=== PATIENT | female | born 1945 | race American Indian/Alaskan Native ===

== ENCOUNTER 2019-09-07 16:57 | Emergency (ER) | payer MEDICARE, OTHER ==
[2019-09-07 17:13] VITALS: BP 154/71; PULSE 95
[2019-09-07 18:04] LABS: ANION GAP 12.8 mEq/L (7-13); CHLORIDE,CL 102 mmol/L (98-107); SODIUM,NA 139 mmol/L (136-145)
--- NOTE | 2019-09-07 18:17 | EDM.PDOC ---
ED HPI GENERAL MEDICAL PROBLEM - General Chief Complaint: Respiratory Problem Stated Complaint: SOB Time Seen by Provider: 09/07/19 18:00 Source of Information: Reports: Patient History Limitations: Reports: No Limitations - History of Present Illness INITIAL COMMENTS - FREE TEXT/NARRATIVE: This 73 yo female patient reports to the ED with increased shortness of breath that came on acutely while she was at [facility]. The patient reports she has these episodes frequently (daily). The patient does not have any medications for anxiety. Onset: Today Duration: Resolved Prior to Arrival Location: Reports: Generalized Quality: Reports: Other Severity: Moderate Improves with: Reports: None Worsens with: Reports: None Context: Reports: Other Associated Symptoms: Reports: Shortness of Breath - Related Data Allergies Allergy/AdvReac Type Severity Reaction Status Date / Time aspirin Allergy Other Verified 09/07/19 17:17 pseudoephedrine Allergy Arrhythmias Verified 09/07/19 17:17 Home Meds: Home Meds Losartan [Cozaar] 100 mg PO DAILY 12/06/13 [History] Metoprolol Succinate 25 mg PO DAILY 12/06/13 [History] amLODIPine Besylate [Amlodipine Besylate] 10 mg PO DAILY 12/06/13 [History] Cyclobenzaprine [Flexeril] 1 tab PO ASDIRECTED PRN 08/15/15 [History] hydroCHLOROthiazide [Hydrochlorothiazide] 50 mg PO DAILY 09/07/19 [History] Past Medical History HEENT History: Reports: Allergic Rhinitis, Cataract Cardiovascular History: Reports: High Cholesterol, Hypertension Respiratory History: Reports: None Gastrointestinal History: Reports: GERD Genitourinary History: Reports: None 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 ED EXAM, GENERAL - Physical Exam Exam: See Below Exam Limited By: No Limitations General Appearance: Alert, WD/WN, No Apparent Distress Eye Exam: Bilateral Eye: EOMI, Normal Inspection, PERRL Ears: Normal External Exam, Normal Canal, Hearing Grossly Normal, Normal TMs Nose: Normal Inspection, Normal Mucosa, No Blood Throat/Mouth: Normal Inspection, Normal Lips, Normal Teeth, Normal Gums, Normal Oropharynx, Normal Voice, No Airway Compromise Head: Atraumatic, Normocephalic Neck: Normal Inspection, Supple, Non-Tender, Full Range of Motion Respiratory/Chest: No Respiratory Distress, No Accessory Muscle Use, Chest Non- Tender, Decreased Breath Sounds, Crackles (faint diffuse) Cardiovascular: Normal Peripheral Pulses, Regular Rate, Rhythm, No Edema, No Gallop, No JVD, No Murmur, No Rub GI/Abdominal: Normal Bowel Sounds, Soft, Non-Tender, No Organomegaly, No Distention, No Abnormal Bruit, No Mass (Female) Exam: Deferred Rectal (Female) Exam: Deferred Back Exam: Normal Inspection, Full Range of Motion, NT Extremities: Normal Inspection, Normal Range of Motion, Non-Tender, Normal Capillary Refill, No Pedal Edema Neurological: Alert, Oriented, CN II-XII Intact, Normal Cognition, Normal Gait, Normal Reflexes, No Motor/Sensory Deficits Psychiatric: Normal Affect, Normal Mood Skin Exam: Warm, Dry, Intact, Normal Color, No Rash Lymphatic: No Adenopathy Course - Vital Signs Last Recorded V/S: Last Vital Signs Temp 36.4 C 09/07/19 17:11 Pulse 95 09/07/19 17:11 Resp 12 09/07/19 17:11 BP 154/71 H 09/07/19 17:11 Pulse Ox 93 L 09/07/19 17:11 - Orders/Labs/Meds Orders: Active Orders 24 hr Category Date Time Status EKG Documentation Completion [RC] STAT Care 09/07/19 17:26 Ordered Labs: Laboratory Tests 09/07/19 09/07/19 Range/Units 17:34 17:34 WBC 9.3 (5.0-10.0) 10^3/uL RBC 4.88 (4.2-5.4) 10^6/uL Hgb 15.1 (12.0-16.0) g/dL Hct 44.7 (37.0-47.0) % MCV 91.6 (80-100) fL MCH 30.9 (27.0-34.0) pg MCHC 33.8 (33.0-35.0) g/dL Plt Count 287 (150-450) 10^3/uL Neut % (Auto) 60.0 (42.2-75.2) % Lymph % (Auto) 26.2 (20.5-50.1) % [place] % (Auto) 9.7 H (2-8) % Eos % (Auto) 3.9 H (1.0-3.0) % Baso % (Auto) 0.2 (0.0-1.0) % Sodium 139 (136-145) mmol/L Potassium 3.8 (3.5-5.1) mmol/L Chloride 102 (98-107) mmol/L Carbon Dioxide 28 (21-32) mmol/L Anion Gap 12.8 (7-13) mEq/L BUN 17 (7-18) mg/dL Creatinine 1.09 H (0.55-1.02) mg/dL Est Cr Clr Drug Dosing 40.74 mL/min Estimated GFR (MDRD) 49 BUN/Creatinine Ratio 15.6 (No establ ref range) Glucose 95 (74-99) mg/dL Calcium 9.1 (8.5-10.1) mg/dL Total Bilirubin 0.3 (0.2-1.0) mg/dL AST 17 (15-37) U/L ALT 24 (14-59) U/L Alkaline Phosphatase 84 (46-116) U/L Troponin I < 0.017 (0.000-0.056) ng/mL Total Protein 7.6 (6.4-8.2) g/dL Albumin 4.1 (3.4-5.0) g/dL Globulin 3.5 Albumin/Globulin Ratio 1.2 Departure - Departure Time of Disposition: 18:13 Disposition: Home, Self-Care 01 Condition: Fair Clinical Impression: Panic attack, Anxiety - Discharge Information *PRESCRIPTION DRUG MONITORING PROGRAM REVIEWED*: Not Applicable *COPY OF PRESCRIPTION DRUG MONITORING REPORT IN PATIENT HANY: Not Applicable Instructions: Living With Anxiety Care Plan Goals: The patient was advised of the examination, lab and EKG results during the visit. The patient was encouraged to continue to use her relaxation techniques. The patient should visit with her primary care facility about these episodes. If the patient has any additional symptoms or concerns, the patient should either return to the emergency department or visit her primary care facility. Sepsis Event Note (ED) - Evaluation Sepsis Screening Result: No Definite Risk - Focused Exam Vital Signs: Vital Signs Temp Pulse Resp BP Pulse Ox 09/07/19 17:11 36.4 C 95 12 154/71 H 93 L - My Orders Last 24 Hours: My Active Orders 09/07/19 17:26 EKG Documentation Completion [RC] STAT - Assessment/Plan Last 24 Hours: My Active Orders 09/07/19 17:26 EKG Documentation Completion [RC] STAT
== END 2019-09-07 18:24 | disposition home or self-care (01) ==
LOC: DL.ED 16:57
DX: F41.0 Panic disorder [episodic paroxysmal anxiety] (principal); I10 Essential (primary) hypertension; Z88.8 Allergy status to other drugs, medicaments and biological substances; Z79.899 Other long term (current) drug therapy
CPT/HCPCS: 36415; 80053; 84484; 85025; 93005; 99285-25

== ENCOUNTER 2019-09-13 04:27 | Emergency (ER) | payer MEDICARE, OTHER ==
[2019-09-13] MEDS ORDERED: LORazepam 1 MG Tab PO ONE (04:28)
[2019-09-13 04:42] VITALS: BP 168/63; PULSE 97
[2019-09-13] MEDS ORDERED: LORazepam 1 MG Tab ONE (04:43)
--- NOTE | 2019-09-13 04:46 | EDM.PDOCBH ---
ED HPI GENERAL MEDICAL PROBLEM - General Chief Complaint: Behavioral/Psych Stated Complaint: ANXIETY ATTACK Time Seen by Provider: 09/13/19 04:42 Source of Information: Reports: Patient History Limitations: Reports: No Limitations - History of Present Illness INITIAL COMMENTS - FREE TEXT/NARRATIVE: states felt the same as last time was here and had lots of tests done but this t venecia doesn't want all that. drove herself here and actually felt better while in the parking lot. states been worried alot with being sick and has agent orange problems. - Related Data Allergies Allergy/AdvReac Type Severity Reaction Status Date / Time aspirin Allergy Other Verified 09/13/19 04:37 pseudoephedrine Allergy Arrhythmias Verified 09/13/19 04:37 Home Meds: Home Meds Losartan [Cozaar] 100 mg PO DAILY 12/06/13 [History] Metoprolol Succinate 25 mg PO DAILY 12/06/13 [History] amLODIPine Besylate [Amlodipine Besylate] 10 mg PO DAILY 12/06/13 [History] Cyclobenzaprine [Flexeril] 1 tab PO ASDIRECTED PRN 08/15/15 [History] Albuterol [Proair HFA] 2 puff INH Q6H PRN 09/07/19 [History] hydroCHLOROthiazide [Hydrochlorothiazide] 50 mg PO DAILY 09/07/19 [History] Past Medical History HEENT History: Reports: Allergic Rhinitis, Cataract Cardiovascular History: Reports: High Cholesterol, Hypertension Respiratory History: Reports: None Other Respiratory History: uses an inhaler when needed Gastrointestinal History: Reports: GERD Genitourinary History: Reports: None 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 ED EXAM, BEHAVIORAL HEALTH - Physical Exam Exam: See Below Exam Limited By: No Limitations General Appearance: Alert, WD/WN, Anxious, Mild Distress, Other (tearful) Eye Exam: Bilateral Eye: PERRL (ess ER @ 4mm) Ears: Hearing Grossly Normal Throat/Mouth: Normal Voice, No Airway Compromise Head: Atraumatic Neck: Non-Tender, Full Range of Motion Respiratory/Chest: No Respiratory Distress, Lungs Clear, Normal Breath Sounds Cardiovascular: Regular Rate, Rhythm GI/Abdominal: Soft, Non-Tender Neurological: Alert, Normal Cognition, Normal Gait, No Motor/Sensory Deficits, Oriented x 3 Psychiatric: Alert, Normal Cognition, Oriented, Tearful, Other (anxious) Skin Exam: Warm, Dry, Normal color Departure - Departure Time of Disposition: 04:45 Disposition: Home, Self-Care 01 Condition: Good Clinical Impression: Panic attack - Discharge Information Forms: ED Department Discharge Additional Instructions: 1) rest 2) follow up with appointment Friday rx leo; ativan 1mg x 1
== END 2019-09-13 04:48 | disposition home or self-care (01) ==
LOC: DL.ED 04:27
DX: F41.0 Panic disorder [episodic paroxysmal anxiety] (principal); I10 Essential (primary) hypertension; Z88.6 Allergy status to analgesic agent; Z88.8 Allergy status to other drugs, medicaments and biological substances; Z79.899 Other long term (current) drug therapy
CPT/HCPCS: 99283; A9270

== ENCOUNTER 2019-09-18 12:54 | Emergency (ER) | payer MEDICARE, OTHER ==
--- NOTE | 2019-09-18 13:45 | EDM.PDOC ---
ED HPI GENERAL MEDICAL PROBLEM - General Chief Complaint: Respiratory Problem Stated Complaint: HARD TO BREATHE Time Seen by Provider: 09/18/19 13:00 Source of Information: Reports: Patient, RN, RN Notes Reviewed History Limitations: Reports: No Limitations - History of Present Illness INITIAL COMMENTS - FREE TEXT/NARRATIVE: Patient presents to ER with complaint of cough and shortness of breath. Patient states she was diagnosed on 09/15/2019 with pneumonia. Patient was prescribed an albuterol inhaler, cough syrup, as well as a Z-Tobi. Patient states she feels her symptoms are not improving. Patient denies fever chills, nausea, vomiting, diarrhea, exposure to COVID. Patient states she was tested for COVID 2 days ago and this was negative. Patient denies chest pains. Onset: Gradual Duration: Constant - Related Data Allergies Allergy/AdvReac Type Severity Reaction Status Date / Time aspirin Allergy Other Verified 09/18/19 13:09 pseudoephedrine Allergy Arrhythmias Verified 09/18/19 13:09 Home Meds: Home Meds Losartan [Cozaar] 100 mg PO DAILY 12/06/13 [History] Metoprolol Succinate 25 mg PO DAILY 12/06/13 [History] amLODIPine Besylate [Amlodipine Besylate] 10 mg PO DAILY 12/06/13 [History] Cyclobenzaprine [Flexeril] 1 tab PO ASDIRECTED PRN 08/15/15 [History] Albuterol [Proair HFA] 2 puff INH Q6H PRN 09/07/19 [History] hydroCHLOROthiazide [Hydrochlorothiazide] 50 mg PO DAILY 09/07/19 [History] Azithromycin 250 mg PO DAILY 09/18/19 [History] guaiFENesin/Dextromethorphan [Guaifenesin-Dm 100-10 mg/5 ml] 10 ml PO Q4H 09/18/19 [History] Past Medical History HEENT History: Reports: Allergic Rhinitis, Cataract Cardiovascular History: Reports: High Cholesterol, Hypertension Respiratory History: Reports: None Other Respiratory History: uses an inhaler when needed Gastrointestinal History: Reports: GERD Genitourinary History: Reports: None 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: Musculoskeletal History: Reports: Osteoarthritis Neurological History: Reports: None Psychiatric History: Reports: None Endocrine/Metabolic History: Reports: None Hematologic History: Reports: None Immunologic History: Reports: None Oncologic (Cancer) History: Reports: None, Breast Dermatologic History: Reports: None - Infectious Disease History Infectious Disease History: Reports: Chicken Pox, Measles, Mumps - Past Surgical History Head Surgeries/Procedures: Reports: None HEENT Surgical History: Reports: Cataract Surgery Social & Family History - Family History Family Medical History: Noncontributory - Tobacco Use Smoking Status *Q: Current Every Day Smoker Years of Tobacco use: 40 Packs/Tins Daily: 1 - Caffeine Use Caffeine Use: Reports: Coffee - Recreational Drug Use Recreational Drug Use: No ED ROS GENERAL - Review of Systems Review Of Systems: Comprehensive ROS is negative, except as noted in HPI. ED EXAM, GENERAL - Physical Exam Exam: See Below Exam Limited By: No Limitations General Appearance: Alert, WD/WN, No Apparent Distress, Anxious Eye Exam: Bilateral Eye: EOMI, Normal Inspection Ears: Normal External Exam, Hearing Grossly Normal Nose: Normal Inspection Throat/Mouth: Normal Inspection, Normal Voice, No Airway Compromise Head: Atraumatic, Normocephalic Neck: Normal Inspection, Supple, Non-Tender, Full Range of Motion Respiratory/Chest: No Respiratory Distress, No Accessory Muscle Use, Chest Non- Tender, Decreased Breath Sounds Cardiovascular: Normal Peripheral Pulses, Regular Rate, Rhythm, No Edema, No Gallop, No JVD, No Murmur, No Rub Peripheral Pulses: 2+: Radial (L), Radial (R) GI/Abdominal: Normal Bowel Sounds, Soft, Non-Tender (Female) Exam: Deferred Rectal (Female) Exam: Deferred Back Exam: Normal Inspection, Full Range of Motion, NT Extremities: Normal Inspection, Normal Range of Motion, Non-Tender, Normal Capillary Refill, No Pedal Edema Neurological: Alert, Oriented, CN II-XII Intact, Normal Cognition, Normal Gait, Normal Reflexes, No Motor/Sensory Deficits Psychiatric: Normal Affect, Normal Mood, Anxious Skin Exam: Warm, Dry, Intact, Normal Color, No Rash Lymphatic: No Adenopathy Course - Vital Signs Last Recorded V/S: Last Vital Signs Temp 98.9 F 09/18/19 14:24 Pulse 79 09/18/19 14:24 Resp 20 09/18/19 14:24 BP 125/65 09/18/19 14:24 Pulse Ox 93 L 09/18/19 14:24 - Orders/Labs/Meds Labs: Laboratory Tests 09/18/19 09/18/19 Range/Units 13:30 13:30 WBC 9.6 (5.0-10.0) 10^3/uL RBC 4.98 (4.2-5.4) 10^6/uL Hgb 15.2 (12.0-16.0) g/dL Hct 45.4 (37.0-47.0) % MCV 91.2 (80-100) fL MCH 30.5 (27.0-34.0) pg MCHC 33.5 (33.0-35.0) g/dL Plt Count 302 (150-450) 10^3/uL Neut % (Auto) 63.9 (42.2-75.2) % Lymph % (Auto) 19.1 L (20.5-50.1) % [place] % (Auto) 8.2 H (2-8) % Eos % (Auto) 8.5 H (1.0-3.0) % Baso % (Auto) 0.3 (0.0-1.0) % Sodium 138 (136-145) mmol/L Potassium 3.7 (3.5-5.1) mmol/L Chloride 101 (98-107) mmol/L Carbon Dioxide 27 (21-32) mmol/L Anion Gap 13.7 H (7-13) mEq/L BUN 20 H (7-18) mg/dL Creatinine 0.95 (0.55-1.02) mg/dL Est Cr Clr Drug Dosing 46.75 mL/min Estimated GFR (MDRD) 58 BUN/Creatinine Ratio 21.1 (No establ ref range) Glucose 94 (74-99) mg/dL Calcium 8.8 (8.5-10.1) mg/dL Total Bilirubin 0.3 (0.2-1.0) mg/dL AST 13 L (15-37) U/L ALT 19 (14-59) U/L Alkaline Phosphatase 89 (46-116) U/L B-Natriuretic Peptide 25 (0-100) pg/ml Total Protein 7.4 (6.4-8.2) g/dL Albumin 3.8 (3.4-5.0) g/dL Globulin 3.6 Albumin/Globulin Ratio 1.1 - Radiology Interpretation Free Text/Narrative:: Chest x-ray: PROCEDURE INFORMATION: Exam: XR Chest, 2 Views Exam date and time: 09/18/2019 1:40 PM Age: 73 years old Clinical indication: Cough and shortness of breath; Additional info: Increased SOB and cough TECHNIQUE: Imaging protocol: XR of the chest Views: 2 views. COMPARISON: No relevant prior studies available. FINDINGS: Lungs: Lungs are hyperinflated consistent with COPD. Pleural space: Unremarkable. No pleural effusion. No pneumothorax. Heart/Mediastinum: Unremarkable. No cardiomegaly. Bones/joints: Remote compression fracture in the midthoracic spine. IMPRESSION: No acute findings. Thank you for allowing us to participate in the care of your patient. Dictated and Authenticated by: Gentry Harris MD 09/18/2019 2:05 PM Central Time ([place] & [place]) See rad report Departure - Departure Time of Disposition: 14:26 Disposition: Home, Self-Care 01 Condition: Fair Clinical Impression: Pneumonia Qualifiers: Pneumonia type: due to unspecified organism Laterality: right Lung location: lower lobe of lung Qualified Code(s): J18.9 - Pneumonia, unspecified organism - Discharge Information *PRESCRIPTION DRUG MONITORING PROGRAM REVIEWED*: No *COPY OF PRESCRIPTION DRUG MONITORING REPORT IN PATIENT HANY: No Instructions: Acute Bronchitis, Adult, [id number], Upper Respiratory Infection, Adult, [id number], Community-Acquired Pneumonia, Adult, [id number] Forms: ED Department Discharge Additional Instructions: Rx: Prednisone Finish azithromycin Use albuterol inhaler as directed Continue using cough medication Rx: Dino Oneill Follow-up with your primary care provider in the clinic if no improvement Sepsis Event Note (ED) - Evaluation Sepsis Screening Result: No Definite Risk - Focused Exam Vital Signs: Vital Signs Temp Pulse Resp BP Pulse Ox 09/18/19 14:24 98.9 F 79 20 125/65 93 L 09/18/19 12:58 98.4 F 122 H 18 122/66 94 L
--- NOTE | 2019-09-18 14:05 | CR ---
PROCEDURE INFORMATION: Exam: XR Chest, 2 Views Exam date and time: 09/18/2019 1:40 PM Age: 73 years old Clinical indication: Cough and shortness of breath; Additional info: Increased SOB and cough TECHNIQUE: Imaging protocol: XR of the chest Views: 2 views. COMPARISON: No relevant prior studies available. FINDINGS: Lungs: Lungs are hyperinflated consistent with COPD. Pleural space: Unremarkable. No pleural effusion. No pneumothorax. Heart/Mediastinum: Unremarkable. No cardiomegaly. Bones/joints: Remote compression fracture in the midthoracic spine. IMPRESSION: No acute findings.
[2019-09-18 14:06] LABS: ANION GAP 13.7 mEq/L (7-13)
[2019-09-18 14:25] VITALS: BP 125/65; PULSE 79
== END 2019-09-18 14:36 | disposition home or self-care (01) ==
LOC: DL.ED 12:54
DX: J18.9 Pneumonia, unspecified organism (principal); I10 Essential (primary) hypertension; F17.210 Nicotine dependence, cigarettes, uncomplicated; Z88.6 Allergy status to analgesic agent; Z88.8 Allergy status to other drugs, medicaments and biological substances; Z79.899 Other long term (current) drug therapy; R06.02 Shortness of breath
CPT/HCPCS: 36415; 71046; 80053; 83880; 85025; 99283; 99283-25

== ENCOUNTER 2019-12-06 01:52 | Emergency (ER) | payer MEDICARE, OTHER ==
[2019-12-06] MEDS ORDERED: Levofloxacin 500 MG Tab PO ONE (01:53)
[2019-12-06] MEDS ORDERED: predniSONE 20 MG Tab PO ONE (01:53)
[2019-12-06 02:04] VITALS: BP 147/87; PULSE 106
--- NOTE | 2019-12-06 02:40 | EDM.PDOC ---
ED HPI GENERAL MEDICAL PROBLEM - General Chief Complaint: Respiratory Problem Stated Complaint: HAVE TROUBLE BREATHIN, SOB, COUGH Time Seen by Provider: 12/06/19 02:05 Source of Information: Reports: Patient History Limitations: Reports: No Limitations - History of Present Illness INITIAL COMMENTS - FREE TEXT/NARRATIVE: ED with c/o SOB and cough, non productive. Hx COPD diagnosed this summer, using inhaler at home not helping. No fever or chills. SOB with activity and when lying down. No chest pain or heart racing. COVID exposure. Grandson age 14 diagnosed positive on with sx present for one week prior to dx. Son also positive last week. No loss of taste or smell. No nausea or vomiting. Reports recent loss of son last week. - Related Data Allergies Allergy/AdvReac Type Severity Reaction Status Date / Time aspirin Allergy Other Verified 12/06/19 02:16 pseudoephedrine Allergy Arrhythmias Verified 12/06/19 02:16 Home Meds: Home Meds Losartan [Cozaar] 100 mg PO DAILY 12/06/13 [History] Metoprolol Succinate 25 mg PO DAILY 12/06/13 [History] amLODIPine Besylate [Amlodipine Besylate] 10 mg PO DAILY 12/06/13 [History] Cyclobenzaprine [Flexeril] 1 tab PO ASDIRECTED PRN 08/15/15 [History] Albuterol [Proair HFA] 2 puff INH Q6H PRN 09/07/19 [History] hydroCHLOROthiazide [Hydrochlorothiazide] 50 mg PO DAILY 09/07/19 [History] guaiFENesin/Dextromethorphan [Guaifenesin-Dm 100-10 mg/5 ml] 10 ml PO Q4H 09/18/19 [History] ClonazePAM [KlonoPIN] 0.5 mg PO TID PRN 12/06/19 [History] Past Medical History HEENT History: Reports: Allergic Rhinitis, Cataract Cardiovascular History: Reports: High Cholesterol, Hypertension Respiratory History: Reports: COPD Other Respiratory History: uses an inhaler when needed Gastrointestinal History: Reports: GERD Genitourinary History: Reports: None CLINIC LEAD History: Reports: Musculoskeletal History: Reports: Osteoarthritis Neurological History: Reports: None Psychiatric History: Reports: Anxiety Endocrine/Metabolic History: Reports: None Hematologic History: Reports: None Immunologic History: Reports: None Oncologic (Cancer) History: Reports: Breast Dermatologic History: Reports: None - Infectious Disease History Infectious Disease History: Reports: Chicken Pox, Measles, Mumps - Past Surgical History Head Surgeries/Procedures: Reports: None HEENT Surgical History: Reports: Cataract Surgery GI Surgical History: Reports: Cholecystectomy Oncologic Surgical History: Reports: Mastectomy Social & Family History - Family History Family Medical History: Noncontributory - Tobacco Use Smoking Status *Q: Current Every Day Smoker Years of Tobacco use: 50 Packs/Tins Daily: 1.5 Used Tobacco, but Quit: No - Caffeine Use Caffeine Use: Reports: Coffee - Recreational Drug Use Recreational Drug Use: No ED ROS GENERAL - Review of Systems Review Of Systems: Comprehensive ROS is negative, except as noted in HPI. ED EXAM, GENERAL - Physical Exam Exam: See Below Exam Limited By: No Limitations General Appearance: Alert, Mild Distress Eye Exam: Bilateral Eye: EOMI Ears: Normal External Exam, Normal TMs Nose: Normal Inspection Throat/Mouth: Normal Inspection, Normal Oropharynx Head: Atraumatic, Normocephalic Neck: Normal Inspection Respiratory/Chest: No Respiratory Distress, Decreased Breath Sounds, Wheezing, Other (left mastectomy ) Cardiovascular: Normal Peripheral Pulses, Regular Rate, Rhythm, No Edema GI/Abdominal: Normal Bowel Sounds, Soft Back Exam: Normal Inspection Extremities: Normal Inspection Neurological: Alert, Oriented Skin Exam: Warm, Dry, Intact, Normal Color Course - Vital Signs Last Recorded V/S: Last Vital Signs Temp 96.9 F 12/06/19 02:02 Pulse 106 H 12/06/19 02:02 Resp 28 H 12/06/19 02:02 BP 147/87 H 12/06/19 02:02 Pulse Ox 96 12/06/19 02:02 - Orders/Labs/Meds Orders: Active Orders 24 hr Category Date Time Status EKG Documentation Completion [RC] STAT Care 12/06/19 01:54 Active RT Post Treatment Assessment [RC] Click to Edit Care 12/06/19 03:20 Active RT Pre-Treatment Assessment [RC] Click to Edit Care 12/06/19 03:20 Active Sodium Chloride 0.9% [Normal Saline] 1,000 ml Med 12/06/19 02:49 Active IV .BOLUS Isolation [COMM] Routine Oth 12/06/19 01:55 Active Medication Orders Sodium Chloride (Normal Saline) 1,000 mls @ 500 mls/hr IV .BOLUS ONE Stop: 12/06/19 04:48 Last Admin: 12/06/19 03:23 Dose: 500 mls/hr Documented by: ALISON Labs: Laboratory Tests 12/06/19 12/06/19 12/06/19 Range/Units 02:11 02:11 02:11 WBC 7.2 (5.0-10.0) 10^3/uL RBC 4.47 (4.2-5.4) 10^6/uL Hgb 13.7 D (12.0-16.0) g/dL Hct 41.9 (37.0-47.0) % MCV 93.7 (80-100) fL MCH 30.6 (27.0-34.0) pg MCHC 32.7 L (33.0-35.0) g/dL Plt Count 239 (150-450) 10^3/uL Neut % (Auto) 59.9 (42.2-75.2) % Lymph % (Auto) 23.8 (20.5-50.1) % [place] % (Auto) 7.3 (2-8) % Eos % (Auto) 8.4 H (1.0-3.0) % Baso % (Auto) 0.6 (0.0-1.0) % D-Dimer, Quantitative 1020 H (0-400) ng/mL Sodium 143 (136-145) mmol/L Potassium 4.0 (3.5-5.1) mmol/L Chloride 106 (98-107) mmol/L Carbon Dioxide 28 (21-32) mmol/L Anion Gap 13.0 (7-13) mEq/L BUN 15 (7-18) mg/dL Creatinine 0.94 (0.55-1.02) mg/dL Est Cr Clr Drug Dosing 46.53 mL/min Estimated GFR (MDRD) 58 BUN/Creatinine Ratio 16.0 (No establ ref range) Glucose 103 H (74-99) mg/dL Calcium 8.8 (8.5-10.1) mg/dL Magnesium 1.9 (1.8-2.4) mg/dL Ferritin (8-252) mg/mL Total Bilirubin 0.3 (0.2-1.0) mg/dL AST 14 L (15-37) U/L ALT 21 (14-59) U/L Alkaline Phosphatase 74 (46-116) U/L Troponin I < 0.017 (0.000-0.056) ng/mL C-Reactive Protein 0.6 (0.0-0.9) mg/dL B-Natriuretic Peptide 51 (0-100) pg/ml Total Protein 6.9 (6.4-8.2) g/dL Albumin 3.8 (3.4-5.0) g/dL Globulin 3.1 Albumin/Globulin Ratio 1.2 Urine Color (YELLOW) Urine Appearance (CLEAR) Urine pH (5.0-9.0) Ur Specific [place] (1.005-1.030) Urine Protein (NEGATIVE) Urine Glucose (UA) (NEGATIVE) Urine Ketones (NEGATIVE) Urine Occult Blood (NEGATIVE) Urine Nitrite (NEGATIVE) Urine Bilirubin (NEGATIVE) Urine Urobilinogen (0.2-1.0) mg/dL Ur Leukocyte Esterase (NEGATIVE) SARS CoV-2 RNA Rapid RENAE (NEGATIVE) 12/06/19 12/06/19 12/06/19 Range/Units 02:11 02:12 03:20 WBC (5.0-10.0) 10^3/uL RBC (4.2-5.4) 10^6/uL Hgb (12.0-16.0) g/dL Hct (37.0-47.0) % MCV (80-100) fL MCH (27.0-34.0) pg MCHC (33.0-35.0) g/dL Plt Count (150-450) 10^3/uL Neut % (Auto) (42.2-75.2) % Lymph % (Auto) (20.5-50.1) % [place] % (Auto) (2-8) % Eos % (Auto) (1.0-3.0) % Baso % (Auto) (0.0-1.0) % D-Dimer, Quantitative (0-400) ng/mL Sodium (136-145) mmol/L Potassium (3.5-5.1) mmol/L Chloride (98-107) mmol/L Carbon Dioxide (21-32) mmol/L Anion Gap (7-13) mEq/L BUN (7-18) mg/dL Creatinine (0.55-1.02) mg/dL Est Cr Clr Drug Dosing mL/min Estimated GFR (MDRD) BUN/Creatinine Ratio (No establ ref range) Glucose (74-99) mg/dL Calcium (8.5-10.1) mg/dL Magnesium (1.8-2.4) mg/dL Ferritin 55 (8-252) mg/mL Total Bilirubin (0.2-1.0) mg/dL AST (15-37) U/L ALT (14-59) U/L Alkaline Phosphatase (46-116) U/L Troponin I (0.000-0.056) ng/mL C-Reactive Protein (0.0-0.9) mg/dL B-Natriuretic Peptide (0-100) pg/ml Total Protein (6.4-8.2) g/dL Albumin (3.4-5.0) g/dL Globulin Albumin/Globulin Ratio Urine Color Yellow (YELLOW) Urine Appearance Clear (CLEAR) Urine pH 5.5 (5.0-9.0) Ur Specific [place] 1.015 (1.005-1.030) Urine Protein Negative (NEGATIVE) Urine Glucose (UA) Negative (NEGATIVE) Urine Ketones Negative (NEGATIVE) Urine Occult Blood Negative (NEGATIVE) Urine Nitrite Negative (NEGATIVE) Urine Bilirubin Negative (NEGATIVE) Urine Urobilinogen 0.2 (0.2-1.0) mg/dL Ur Leukocyte Esterase Negative (NEGATIVE) SARS CoV-2 RNA Rapid RENAE Negative (NEGATIVE) Meds: Medications Generic Name Dose Route Start Last Admin Trade Name Freq PRN Reason Stop Dose Admin Sodium Chloride 1,000 mls @ 500 mls/hr 12/06/19 02:49 12/06/19 03:23 Normal Saline IV 12/06/19 04:48 500 mls/hr .BOLUS ONE Administration Discontinued Medications Generic Name Dose Route Start Last Admin Trade Name Freq PRN Reason Stop Dose Admin Albuterol 6.7 gm 12/06/19 03:20 12/06/19 03:24 Proventil Hfa INH 12/06/19 03:21 2 spray ONETIME ONE Administration Iopamidol 100 ml 12/06/19 02:49 12/06/19 02:58 Isovue-370 (76%) IVPUSH 12/06/19 02:50 100 ml ONETIME ONE Administration Levofloxacin Confirm 12/06/19 04:21 Levaquin Administered 12/06/19 04:22 Dose 500 mg .ROUTE .STK-MED ONE Methylprednisolone Sodium Succinate 125 mg 12/06/19 02:51 12/06/19 02:56 Solu-Medrol IVPUSH 12/06/19 02:52 125 mg ONETIME ONE Administration Prednisone Confirm 12/06/19 04:21 Prednisone Administered 12/06/19 04:22 Dose 40 mg .ROUTE .STK-MED ONE Departure - Departure Time of Disposition: 04:08 Disposition: Home, Self-Care 01 Condition: Good Clinical Impression: COPD exacerbation - Discharge Information *PRESCRIPTION DRUG MONITORING PROGRAM REVIEWED*: No *COPY OF PRESCRIPTION DRUG MONITORING REPORT IN PATIENT HANY: No Instructions: Chronic Obstructive Pulmonary Disease Exacerbation, [id number], Upper Respiratory Infection, Adult, [id number] Forms: ED Department Discharge Additional Instructions: clinic recheck this week urgent follow up if symptoms worsen prednisone taper levaquin 500mg daily for one week increase fluids today to flush IV contrast albuterol inhaler 2 puffs every 4 hours as needed Sepsis Event Note (ED) - Evaluation Sepsis Screening Result: No Definite Risk - Focused Exam Vital Signs: Vital Signs Temp Pulse Resp BP Pulse Ox 12/06/19 02:02 96.9 F 106 H 28 H 147/87 H 96 - My Orders Last 24 Hours: My Active Orders 12/06/19 01:54 EKG Documentation Completion [RC] STAT 12/06/19 01:55 Isolation [COMM] Routine 12/06/19 02:49 Sodium Chloride 0.9% [Normal Saline] 1,000 ml IV .BOLUS 12/06/19 03:20 RT Post Treatment Assessment [RC] Click to Edit RT Pre-Treatment Assessment [RC] Click to Edit - Assessment/Plan Last 24 Hours: My Active Orders 12/06/19 01:54 EKG Documentation Completion [RC] STAT 12/06/19 01:55 Isolation [COMM] Routine 12/06/19 02:49 Sodium Chloride 0.9% [Normal Saline] 1,000 ml IV .BOLUS 12/06/19 03:20 RT Post Treatment Assessment [RC] Click to Edit RT Pre-Treatment Assessment [RC] Click to Edit
[2019-12-06 02:41] LABS: CHLORIDE,CL 106 mmol/L (98-107); SODIUM,NA 143 mmol/L (136-145)
[2019-12-06] MEDS ORDERED: Sodium Chloride 0.9% 1,000 ML IV ONE (02:49)
[2019-12-06] MEDS ORDERED: Iopamidol 755 Mg/ML 100 ML Bottle IVPUSH ONE (02:49)
[2019-12-06] MEDS ORDERED: methylPREDNISolone Sodium Succinate 125 MG/2 ML SDV IVPUSH ONE (02:51)
[2019-12-06] MEDS ORDERED: Albuterol 6.7 GM Inhaler INH ONE (03:20)
--- NOTE | 2019-12-06 04:04 | CT ---
PROCEDURE INFORMATION: Exam: CT Chest With Contrast Exam date and time: 12/06/2019 3:11 AM Age: 74 years old Clinical indication: Other: [id number]; Patient HX: Pe protocol; Additional info: SOB wheeze, copd HX TECHNIQUE: Imaging protocol: Computed tomography of the chest with intravenous contrast. Radiation optimization: All CT scans at this facility use at least one of these dose optimization techniques: automated exposure control; mA and/or kV adjustment per patient size (includes targeted exams where dose is matched to clinical indication); or iterative reconstruction. Contrast material: [id number]; Contrast volume: 86 ml; Contrast route: INTRAVENOUS (IV); COMPARISON: CT Chest w Cont 10/26/2019 1:31 PM; CXR 09/18/2019 FINDINGS: Thyroid: No concerning thyroid gland nodules. Lungs: Central airways are patent. Upper lung predominant centrilobular emphysema is present. There is a subtle region of ground-glass attenuation in the right upper lobe that measures 1.7 cm (series 5, image 37). Left upper lobe pulmonary nodule measures 4 mm (series 5, image 12). Pleural space: Unremarkable. No pneumothorax. No pleural effusion. Heart: Unremarkable. No cardiomegaly. No pericardial effusion. Pulmonary arteries: No pulmonary embolus. Aorta: The thoracic aorta is normal in caliber and without evidence of dissection. There is moderate calcified and noncalcified atherosclerosis, especially of the descending aorta. Lymph nodes: No axillary lymphadenopathy. Liver: A 10 mm hypoattenuating lesion in the left lobe of the liver is incompletely evaluated but likely represents a benign entity. Gallbladder and bile ducts: The gallbladder is surgically absent. Kidneys and ureters: A fluid attenuating lesion in the right kidney measures 1.8 cm is unchanged and has no concerning features; this is likely a benign cyst and requires no further follow-up. Bones/joints: Anterior wedge deformity of T7 is unchanged. Soft tissues: The patient is status post left mastectomy. IMPRESSION: 1. No pulmonary embolus. 2. Ground-glass nodule in the right upper lobe measures 1.7 cm and is not changed over this short interval (last exam, 11/14/2019). Consider chest CT in 6 months to confirm stability. This recommendation is derived from the 2017 Fleischner society criteria.
[2019-12-06] MEDS ORDERED: predniSONE 20 MG Tab ONE (04:21)
[2019-12-06] MEDS ORDERED: Levofloxacin 500 MG Tab ONE (04:21)
== END 2019-12-06 04:36 | disposition home or self-care (01) ==
LOC: DL.ED 01:52
DX: J44.1 Chronic obstructive pulmonary disease with (acute) exacerbation (principal); I10 Essential (primary) hypertension; F41.9 Anxiety disorder, unspecified; F17.210 Nicotine dependence, cigarettes, uncomplicated; Z88.8 Allergy status to other drugs, medicaments and biological substances; Z88.6 Allergy status to analgesic agent; Z79.899 Other long term (current) drug therapy; Z20.828 Contact with and (suspected) exposure to other viral communicable diseases
CPT/HCPCS: 36415; 71260; 80053; 81003; 82728; 83735; 83880; 84484; 85025; 85379; 86140; 87804; 93005; 96374; 99284; 99285; A9270; J2930; J7030; J7512; Q9967; U0002

== ENCOUNTER 2019-12-22 13:44 | Emergency (ER) | payer MEDICARE, OTHER ==
[2019-12-22 14:29] VITALS: BP 144/67
--- NOTE | 2019-12-22 14:45 | CR ---
EXAMINATION: Chest 2V SEX: Female AGE: 74 years CLINICAL HISTORY: 74-year-old female with chest pain. Interpretation: No acute new cardiopulmonary abnormality since 18 September 2019 exam. 1. Left mastectomy. 2. 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 3. Normal cardiac silhouette. No pulmonary vascular congestion, cephalization of flow, alveolar edema or dependent pleural effusion. Small hiatus hernia. 4. Peribronchial "cuffing" and generalized mild air trapping suggesting reactive airway disease. 5. No lobar pneumonic infiltrates, atelectasis/collapse or "groundglass" densities. 6. No lung mass or hilar lymphadenopathy. CONCLUSION: No new signs of heart failure, lung mass or lobar pneumonia.
[2019-12-22 15:04] LABS: ANION GAP 13.6 mEq/L (7-13); CHLORIDE,CL 102 mmol/L (98-107); SODIUM,NA 138 mmol/L (136-145)
[2019-12-22] MEDS ORDERED: Albuterol/Ipratropium 3.0-0.5 MG/3 ML Neb Soln NEB ONE (15:32)
--- NOTE | 2019-12-22 15:34 | EDM.PDOC ---
ED HPI GENERAL MEDICAL PROBLEM - General Chief Complaint: Respiratory Problem Stated Complaint: SOB Time Seen by Provider: 12/22/19 15:33 Source of Information: Reports: Patient, RN, RN Notes Reviewed History Limitations: Reports: No Limitations - History of Present Illness INITIAL COMMENTS - FREE TEXT/NARRATIVE: Patient presents to the ED via personal vehicle with complaints of shortness of breath. Per the patient, this acute episode began this morning upon awakening. She states she did take her Proair today, but did not feel much relief of her symptoms. She relates she feels she is unable to "...take a good deep breath." She denies chest pain, palpitations, vision changes, or loss of motor/sensory function. She does attest to dry cough with occasional sputum production. She states she smokes about one and one half packs of cigarettes per day. The patient states she was treated in this ED roughly two weeks prior with similar symptoms with a prednisone burst and levofloxacin. She states her shortness of breath has progressively worsened since she ran out of steroids. - Related Data Allergies Allergy/AdvReac Type Severity Reaction Status Date / Time aspirin Allergy Other Verified 12/22/19 14:04 pseudoephedrine Allergy Arrhythmias Verified 12/22/19 14:04 Home Meds: Home Meds Losartan [Cozaar] 100 mg PO DAILY 12/06/13 [History] Metoprolol Succinate 25 mg PO DAILY 12/06/13 [History] amLODIPine Besylate [Amlodipine Besylate] 10 mg PO DAILY 12/06/13 [History] Cyclobenzaprine [Flexeril] 1 tab PO ASDIRECTED PRN 08/15/15 [History] Albuterol [Proair HFA] 2 puff INH Q4HR PRN 09/07/19 [History] hydroCHLOROthiazide [Hydrochlorothiazide] 50 mg PO DAILY 09/07/19 [History] guaiFENesin/Dextromethorphan [Guaifenesin-Dm 100-10 mg/5 ml] 10 ml PO Q4H 09/18/19 [History] ClonazePAM [KlonoPIN] 0.5 mg PO TID PRN 12/06/19 [History] Past Medical History HEENT History: Reports: Allergic Rhinitis, Cataract Cardiovascular History: Reports: High Cholesterol, Hypertension Respiratory History: Reports: COPD Other Respiratory History: uses an inhaler when needed Gastrointestinal History: Reports: GERD Genitourinary History: Reports: None 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: Musculoskeletal History: Reports: Osteoarthritis Neurological History: Reports: None Psychiatric History: Reports: Anxiety Endocrine/Metabolic History: Reports: None Hematologic History: Reports: None Immunologic History: Reports: None Oncologic (Cancer) History: Reports: Breast Dermatologic History: Reports: None - Infectious Disease History Infectious Disease History: Reports: Chicken Pox, Measles, Mumps - Past Surgical History Head Surgeries/Procedures: Reports: None HEENT Surgical History: Reports: Cataract Surgery GI Surgical History: Reports: Cholecystectomy Oncologic Surgical History: Reports: Mastectomy Social & Family History - Family History Family Medical History: Noncontributory - Tobacco Use Tobacco Use Status *Q: Current Every Day Tobacco User Years of Tobacco use: 60 Packs/Tins Daily: 1.5 - Caffeine Use Caffeine Use: Reports: Coffee - Recreational Drug Use Recreational Drug Use: No ED ROS GENERAL - Review of Systems Review Of Systems: Comprehensive ROS is negative, except as noted in HPI. ED EXAM, GENERAL - Physical Exam Exam: See Below Exam Limited By: No Limitations General Appearance: Alert, WD/WN, Mild Distress Nose: Normal Inspection, Normal Mucosa, No Blood Throat/Mouth: Normal Inspection, Normal Voice, No Airway Compromise Head: Atraumatic, Normocephalic Neck: Normal Inspection, Supple, Non-Tender, Full Range of Motion Respiratory/Chest: Chest Non-Tender, Decreased Breath Sounds, Wheezing, Accessory Muscle Use Cardiovascular: Normal Peripheral Pulses, Regular Rate, Rhythm, No Edema, No Gallop, No JVD, No Murmur, No Rub Peripheral Pulses: 2+: Radial (L), Radial (R) Extremities: Normal Inspection, Normal Range of Motion, Non-Tender, No Pedal Edema, Normal Capillary Refill Neurological: Alert, Oriented, CN II-XII Intact Psychiatric: Anxious Skin Exam: Warm, Dry, Normal Color, No Rash Course - Vital Signs Last Recorded V/S: Last Vital Signs Temp 97.8 F 12/22/19 14:20 Pulse 84 12/22/19 15:37 Resp 26 H 12/22/19 14:20 BP 144/67 H 12/22/19 14:20 Pulse Ox 96 12/22/19 14:20 - Orders/Labs/Meds Orders: Active Orders 24 hr Category Date Time Status EKG Documentation Completion [RC] URGENT Care 12/22/19 14:27 Active RT Aerosol Therapy [RC] ASDIRECTED Care 12/22/19 15:32 Ordered Labs: Laboratory Tests 12/22/19 12/22/19 Range/Units 14:16 14:16 WBC 8.3 (5.0-10.0) 10^3/uL RBC 4.67 (4.2-5.4) 10^6/uL Hgb 14.5 (12.0-16.0) g/dL Hct 44.1 (37.0-47.0) % MCV 94.4 (80-100) fL MCH 31.0 (27.0-34.0) pg MCHC 32.9 L (33.0-35.0) g/dL Plt Count 243 (150-450) 10^3/uL Neut % (Auto) 71.9 (42.2-75.2) % Lymph % (Auto) 14.9 L (20.5-50.1) % [place] % (Auto) 7.6 (2-8) % Eos % (Auto) 5.1 H (1.0-3.0) % Baso % (Auto) 0.5 (0.0-1.0) % Sodium 138 (136-145) mmol/L Potassium 3.6 (3.5-5.1) mmol/L Chloride 102 (98-107) mmol/L Carbon Dioxide 26 (21-32) mmol/L Anion Gap 13.6 H (7-13) mEq/L BUN 23 H (7-18) mg/dL Creatinine 0.97 (0.55-1.02) mg/dL Est Cr Clr Drug Dosing 45.09 mL/min Estimated GFR (MDRD) 56 BUN/Creatinine Ratio 23.7 (No establ ref range) Glucose 140 H (74-99) mg/dL Calcium 8.9 (8.5-10.1) mg/dL Total Bilirubin 0.4 (0.2-1.0) mg/dL AST 13 L (15-37) U/L ALT 22 (14-59) U/L Alkaline Phosphatase 68 (46-116) U/L Troponin I < 0.017 (0.000-0.056) ng/mL Total Protein 7.2 (6.4-8.2) g/dL Albumin 3.6 (3.4-5.0) g/dL Globulin 3.6 Albumin/Globulin Ratio 1.0 Meds: Medications Discontinued Medications Generic Name Dose Route Start Last Admin Trade Name Anju PRN Reason Stop Dose Admin Albuterol/Ipratropium 3 ml 12/22/19 15:32 12/22/19 15:40 Duoneb 3.0-0.5 Mg/3 Ml NEB 12/22/19 15:33 3 ml ONETIME ONE Administration - Re-Assessments/Exams Free Text/Narrative Re-Assessment/Exam: 12/22/19 15:45 Patient given a DuoNeb Departure - Departure Time of Disposition: 15:56 Disposition: Home, Self-Care 01 Condition: Good Clinical Impression: COPD exacerbation - Discharge Information *PRESCRIPTION DRUG MONITORING PROGRAM REVIEWED*: Not Applicable *COPY OF PRESCRIPTION DRUG MONITORING REPORT IN PATIENT HANY: Not Applicable Instructions: Steps to Quit Smoking, [id number], Chronic Obstructive Pulmonary Disease, [id number] Forms: ED Department Discharge Additional Instructions: Rx: Prednisone Follow up with your primary care provider by the end of the week. 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 Sepsis Event Note (ED) - Evaluation Sepsis Screening Result: Possible Sepsis Risk - Focused Exam Vital Signs: Vital Signs Temp Pulse Resp BP Pulse Ox 12/22/19 15:37 84 12/22/19 14:20 97.8 F 116 H 26 H 144/67 H 96 - My Orders Last 24 Hours: My Active Orders 12/22/19 15:32 RT Aerosol Therapy [RC] ASDIRECTED - Assessment/Plan Last 24 Hours: My Active Orders 12/22/19 15:32 RT Aerosol Therapy [RC] ASDIRECTED
[2019-12-22 15:39] VITALS: PULSE 84
== END 2019-12-22 16:25 | disposition home or self-care (01) ==
LOC: DL.ED 13:44
DX: J44.1 Chronic obstructive pulmonary disease with (acute) exacerbation (principal); F17.210 Nicotine dependence, cigarettes, uncomplicated; I10 Essential (primary) hypertension; Z79.899 Other long term (current) drug therapy; Z88.6 Allergy status to analgesic agent
CPT/HCPCS: 36415; 71046; 80053; 84484; 85025; 93005; 94640; 99285-25; J7620-GY

== ENCOUNTER 2019-12-30 16:24 | Emergency (ER) | payer MEDICARE, OTHER ==
[2019-12-30] MEDS ORDERED: Albuterol 0.083% 2.5 MG/3 ML Neb Soln NEB ONE (17:06)
[2019-12-30 17:16] VITALS: PULSE 103
--- NOTE | 2019-12-30 17:31 | EDM.PDOC ---
ED HPI GENERAL MEDICAL PROBLEM - General Chief Complaint: Respiratory Problem Stated Complaint: hard time breathing Time Seen by Provider: 12/30/19 17:10 Source of Information: Reports: Patient, RN, RN Notes Reviewed History Limitations: Reports: No Limitations - History of Present Illness INITIAL COMMENTS - FREE TEXT/NARRATIVE: Patient presents to the ED via personal vehicle for complaints of shortness of breath and cough. Patient states she has COPD and her rescue albuterol nebulizers and inhalers are not providing her adequate relief of symptoms. She states she has not followed up with her primary care provider since she was last seen in this facility on 12/22/2019. The patient does state she has an appointment with her PCP on 01/08/2020. She attests to using her DuoNeb roughly six times per day and her Ventolin about four times a day. She denies fever, shaking chills, chest pain, palpitations, vision changes, or an increase in sputum production. She states she is still currently smoking, but has the medications to help her quit. - Related Data Allergies Allergy/AdvReac Type Severity Reaction Status Date / Time aspirin Allergy Other Verified 12/22/19 14:04 pseudoephedrine Allergy Arrhythmias Verified 12/22/19 14:04 Home Meds: Home Meds Losartan [Cozaar] 100 mg PO DAILY 12/06/13 [History] Metoprolol Succinate 25 mg PO DAILY 12/06/13 [History] amLODIPine Besylate [Amlodipine Besylate] 10 mg PO DAILY 12/06/13 [History] Cyclobenzaprine [Flexeril] 1 tab PO ASDIRECTED PRN 08/15/15 [History] Albuterol [Proair HFA] 2 puff INH Q4HR PRN 09/07/19 [History] hydroCHLOROthiazide [Hydrochlorothiazide] 50 mg PO DAILY 09/07/19 [History] guaiFENesin/Dextromethorphan [Guaifenesin-Dm 100-10 mg/5 ml] 10 ml PO Q4H 09/18/19 [History] ClonazePAM [KlonoPIN] 0.5 mg PO TID PRN 12/06/19 [History] Past Medical History HEENT History: Reports: Allergic Rhinitis, Cataract Cardiovascular History: Reports: High Cholesterol, Hypertension Respiratory History: Reports: COPD Other Respiratory History: uses an inhaler when needed Gastrointestinal History: Reports: GERD Genitourinary History: Reports: None 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: Musculoskeletal History: Reports: Osteoarthritis Neurological History: Reports: None Psychiatric History: Reports: Anxiety Endocrine/Metabolic History: Reports: None Hematologic History: Reports: None Immunologic History: Reports: None Oncologic (Cancer) History: Reports: Breast Dermatologic History: Reports: None - Infectious Disease History Infectious Disease History: Reports: Chicken Pox, Measles, Mumps - Past Surgical History Head Surgeries/Procedures: Reports: None HEENT Surgical History: Reports: Cataract Surgery GI Surgical History: Reports: Cholecystectomy Oncologic Surgical History: Reports: Mastectomy Social & Family History - Family History Family Medical History: Noncontributory - Caffeine Use Caffeine Use: Reports: Coffee ED ROS GENERAL - Review of Systems Review Of Systems: Comprehensive ROS is negative, except as noted in HPI. ED EXAM, GENERAL - Physical Exam Exam: See Below Exam Limited By: No Limitations General Appearance: Alert, WD/WN, Mild Distress Throat/Mouth: Normal Inspection, Normal Voice, No Airway Compromise Neck: Normal Inspection, Supple, Non-Tender, Full Range of Motion Respiratory/Chest: Chest Non-Tender, Wheezing, Accessory Muscle Use. No: Crackles, Rales, Rhonchi, Stridor Cardiovascular: No Edema, No Gallop, No JVD, No Murmur, No Rub, Tachycardia Peripheral Pulses: 2+: Radial (L), Radial (R), Dorsalis Pedis (L), Dorsalis Pedis (R) GI/Abdominal: Normal Bowel Sounds, Soft, Non-Tender, No Distention, No Mass Extremities: Normal Inspection, Normal Range of Motion Neurological: Alert, Oriented, CN II-XII Intact, Normal Cognition, Normal Gait, No Motor/Sensory Deficits Psychiatric: Normal Affect, Normal Mood Skin Exam: Warm, Dry, Intact, Normal Color, No Rash. No: Ecchymosis, Erythema, Mottled, Pallor, Petechiae #1 Interpretation EKG Date: 12/30/19 Time: 16:46 Rhythm: Other (Sinus Tach) Rate (Beats/Min): 110 [place]: Normal P-Wave: Present QRS: Normal ST-T: Normal QT: Normal Comparison: No Change (ST; No evidence of acute ischemia) Course - Vital Signs Last Recorded V/S: Last Vital Signs Temp 98.1 F 12/30/19 16:47 Pulse 103 H 12/30/19 17:06 Resp 16 12/30/19 16:47 BP 145/65 H 12/30/19 16:47 Pulse Ox 93 L 12/30/19 17:06 - Orders/Labs/Meds Orders: Active Orders 24 hr Category Date Time Status RT Aerosol Therapy [RC] ASDIRECTED Care 12/30/19 17:06 Active Meds: Medications Discontinued Medications Generic Name Dose Route Start Last Admin Trade Name Freq PRN Reason Stop Dose Admin Albuterol 2.5 mg 12/30/19 17:06 12/30/19 17:11 Proventil Neb Soln NEB 12/30/19 17:07 2.5 mg ONETIME ONE Administration Methylprednisolone Sodium Succinate 125 mg 12/30/19 18:02 12/30/19 18:22 Solu-Medrol IM 12/30/19 18:03 125 mg ONETIME ONE Administration - Re-Assessments/Exams Free Text/Narrative Re-Assessment/Exam: Patient states an improvement in her breathing following the nebulizer treatment and the steroid injection. Patient counseled on the use of pulmonary burst steroids for COPD, rescue methods for COPD, and the importance of a long-acting medication to better control her COPD. She verbalized understanding and agreement with the plan of care. Departure - Departure Time of Disposition: 18:26 Disposition: Home, Self-Care 01 Condition: Good Clinical Impression: COPD exacerbation - Discharge Information *PRESCRIPTION DRUG MONITORING PROGRAM REVIEWED*: Not Applicable *COPY OF PRESCRIPTION DRUG MONITORING REPORT IN PATIENT HANY: Not Applicable Referrals: Jose Roberto Sawant [Primary Care Provider] - Forms: ED Department Discharge Additional Instructions: Rx: Prednisone Keep appointment with primary care provider to set up appointment with Pulmonology. Refrain from smoking cigarettes. - My Orders Last 24 Hours: My Active Orders 12/30/19 17:06 RT Aerosol Therapy [RC] ASDIRECTED - Assessment/Plan Last 24 Hours: My Active Orders 12/30/19 17:06 RT Aerosol Therapy [RC] ASDIRECTED
[2019-12-30 17:51] VITALS: BP 145/65
[2019-12-30] MEDS ORDERED: methylPREDNISolone Sodium Succinate 125 MG/2 ML SDV IM ONE (18:02)
== END 2019-12-30 18:32 | disposition home or self-care (01) ==
LOC: DL.ED 16:24
DX: J44.1 Chronic obstructive pulmonary disease with (acute) exacerbation (principal); I10 Essential (primary) hypertension; Z88.6 Allergy status to analgesic agent; Z88.8 Allergy status to other drugs, medicaments and biological substances; Z79.899 Other long term (current) drug therapy
CPT/HCPCS: 96372; 99284; J2930; J7613-GY

== ENCOUNTER 2020-04-24 03:02 | Emergency (ER) | payer MEDICARE, OTHER ==
[2020-04-24] MEDS ORDERED: methylPREDNISolone Sodium Succinate 125 MG/2 ML SDV IVPUSH ONE (03:08)
[2020-04-24] MEDS ORDERED: Albuterol/Ipratropium 3.0-0.5 MG/3 ML Neb Soln NEB ONE (03:08)
--- NOTE | 2020-04-24 03:33 | EDM.PDOC ---
ED HPI GENERAL MEDICAL PROBLEM - General Chief Complaint: Respiratory Problem Stated Complaint: HARD TIME BREATHING. Time Seen by Provider: 04/24/20 03:15 Source of Information: Reports: Patient, Old Records, RN, RN Notes Reviewed History Limitations: Reports: No Limitations - History of Present Illness INITIAL COMMENTS - FREE TEXT/NARRATIVE: Patient presents to the ED via personal vehicle with complaints of shortness of breath. The patient reports a history of COPD for which he is prescribed budesonide BID, formoterol BID, and albuterol q4h PRN. The patient states she has not had to use her rescue inhaler since starting her control therapy medications a few months ago, however she required three doses today and has not experienced improvement in symptoms. She states the shortness of breath began earlier today and has maintained in that time. She denies fever, shaking chills, sinus pressure, chest pain/pressure, or palpitations. She does attest to productive cough. The patient denies a history of COVID infection and states she has received both doses of vaccination. She does attest to smoking roughly three cigarettes per day, down from two packs since starting Chantix two months ago. She denies alcohol or recreational drug use. Treatments REJECTOR: Reports: Other (see below) Other Treatments REJECTOR: Rt. treatment - Related Data Allergies Allergy/AdvReac Type Severity Reaction Status Date / Time aspirin Allergy Other Verified 04/24/20 03:23 pseudoephedrine Allergy Arrhythmias Verified 04/24/20 03:23 Home Meds: Home Meds Losartan [Cozaar] 100 mg PO DAILY 12/06/13 [History] Metoprolol Succinate 25 mg PO DAILY 12/06/13 [History] amLODIPine Besylate [Amlodipine Besylate] 10 mg PO DAILY 12/06/13 [History] Cyclobenzaprine [Flexeril] 1 tab PO ASDIRECTED PRN 08/15/15 [History] Albuterol [Proair HFA] 2 puff INH Q4HR PRN 09/07/19 [History] hydroCHLOROthiazide [Hydrochlorothiazide] 50 mg PO DAILY 09/07/19 [History] guaiFENesin/Dextromethorphan [Guaifenesin-Dm 100-10 mg/5 ml] 10 ml PO Q4H 09/18/19 [History] ClonazePAM [KlonoPIN] 0.5 mg PO TID PRN 12/06/19 [History] Albuterol Sulfate 2.5 mg INH .Q4 HOURS NEEDED. 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: Musculoskeletal History: Reports: Osteoarthritis Neurological History: Reports: None Psychiatric History: Reports: Anxiety Endocrine/Metabolic History: Reports: None Hematologic History: Reports: None Immunologic History: Reports: None Oncologic (Cancer) History: Reports: Breast Dermatologic History: Reports: None - Infectious Disease History Infectious Disease History: Reports: Chicken Pox, Measles, Mumps - Past Surgical History Head Surgeries/Procedures: Reports: None HEENT Surgical History: Reports: Cataract Surgery GI Surgical History: Reports: Cholecystectomy Oncologic Surgical History: Reports: Mastectomy Social & Family History - Family History Family Medical History: No Pertinent Family History - Caffeine Use Caffeine Use: Reports: Coffee ED ROS GENERAL - Review of Systems Review Of Systems: Comprehensive ROS is negative, except as noted in HPI. ED EXAM, GENERAL - Physical Exam Exam: See Below Exam Limited By: No Limitations General Appearance: Alert, Mild Distress (Shortness of breath) Eye Exam: Bilateral Eye: EOMI, Normal Inspection, PERRL (3mm) Ears: Normal External Exam, Normal Canal, Hearing Grossly Normal, Normal TMs Ear Exam: Bilateral Ear: Auricle Normal, Canal Normal, TM normal Nose: Normal Inspection, Normal Mucosa, No Blood Throat/Mouth: Normal Lips, Normal Teeth, Normal Oropharynx, Other (Red, beefy tongue). No: Normal Voice (Hoarse voice), No Airway Compromise Head: Atraumatic, Normocephalic Neck: Normal Inspection, Supple, Non-Tender, Full Range of Motion. No: Lymphadenopathy (L), Lymphadenopathy (R) Respiratory/Chest: Normal Breath Sounds, No Accessory Muscle Use, Chest Non- Tender, Rales (To left lower lobe), Wheezing (Expiratory wheezes to bilateral upper loobes) Cardiovascular: Normal Peripheral Pulses, Regular Rate, Rhythm, No Edema, No Gallop, No JVD, No Murmur, No Rub Peripheral Pulses: 2+: Radial (L), Radial (R) Extremities: Normal Inspection, Normal Range of Motion, Non-Tender, No Pedal Edema, Normal Capillary Refill Neurological: Alert, Oriented, CN II-XII Intact, Normal Cognition, Normal Gait, No Motor/Sensory Deficits Psychiatric: Normal Affect, Normal Mood Skin Exam: Warm, Dry, Intact, Normal Color, No Rash. No: Ecchymosis, Erythema, Mottled, Pallor Course - Vital Signs Last Recorded V/S: Last Vital Signs Temp 96.9 F 04/24/20 03:10 Pulse 97 04/24/20 04:58 Resp 20 04/24/20 04:58 BP 90/71 04/24/20 04:58 Pulse Ox 95 04/24/20 04:58 - Orders/Labs/Meds Orders: Active Orders 24 hr Category Date Time Status Chest 1V Frontal [CR] Urgent Exams 04/24/20 03:41 Taken Labs: Laboratory Tests 04/24/20 Range/Units 03:18 WBC 7.0 (5.0-10.0) 10^3/uL RBC 4.66 (4.2-5.4) 10^6/uL Hgb 14.6 (12.0-16.0) g/dL Hct 43.3 (37.0-47.0) % MCV 92.9 (80-100) fL MCH 31.3 (27.0-34.0) pg MCHC 33.7 (33.0-35.0) g/dL Plt Count 279 (150-450) 10^3/uL Neut % (Auto) 46.6 (42.2-75.2) % Lymph % (Auto) 31.7 (20.5-50.1) % [place] % (Auto) 9.0 H (2-8) % Eos % (Auto) 12.3 H (1.0-3.0) % Baso % (Auto) 0.4 (0.0-1.0) % Add Manual Diff Yes Neutrophils % (Manual) 45 (42-75) % Lymphocytes % (Manual) 29 (20-50) % Monocytes % (Manual) 11 H (2-8) % Eosinophils % (Manual) 15 H (1-3) % Meds: Medications Discontinued Medications Generic Name Dose Route Start Last Admin Trade Name Anju PRN Reason Stop Dose Admin Albuterol/Ipratropium 3 ml 04/24/20 03:08 04/24/20 03:34 Duoneb 3.0-0.5 Mg/3 Ml NEB 04/24/20 03:09 3 ml ONETIME ONE Administration Methylprednisolone Sodium Succinate 125 mg 04/24/20 03:08 04/24/20 03:34 Solu-Medrol IVPUSH 04/24/20 03:09 125 mg ONETIME ONE Administration - Radiology Interpretation Free Text/Narrative:: [facility] Final Radiology Report Call: [phone] assistance Online chat: [email or web address] Company Name: [employer] Age: 74Years F Date: 04/24/2020 SSN: -- : [id number] Study: CR CHEST 1V FRONTAL Requesting Physician: FRANCO LOPEZ Images: 1 Addl Studies: Provided Clinical History: Contrast: Contrast Medium: Contrast Amount: Contrast Method: CONFIDENTIALITY STATEMENT This report is intended only for use by the referring physician, and only in accordance with law. If you received this in error, call [phone]. Page 1 of 1 PROCEDURE INFORMATION: Exam: XR Chest Exam date and time: 04/24/2020 4:02 AM Age: 74 years old Clinical indication: Shortness of breath TECHNIQUE: Imaging protocol: XR of the chest Views: 1 view. COMPARISON: CR Chest 2V 12/22/2019 2:27 PM FINDINGS: Lungs: COPD. Pleural spaces: New small right pleural effusion. Heart/Mediastinum: Unremarkable. No cardiomegaly. Bones/joints: Unremarkable. IMPRESSION: COPD with new small right pleural effusion. Thank you for allowing us to participate in the care of your patient. Dictated and Authenticated by: Cecil Valentino MD 04/24/2020 4:46 AM Central Time ([place] & [place]) - Re-Assessments/Exams Free Text/Narrative Re-Assessment/Exam: 04/24/20 Patient verbalized improvement in breathing following DuoNeb and SoluMedrol 125mg. CBC unremarkable for acute processes; no infection or anemia appreciated. Xray remarkable for COPD with new small effusion. Will treat exacerbation with Prednisone 40mg x5 days and Tessalon Perles for comfort. 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 2.) Continue with your previously prescribed inhalers and nebulizers. Sepsis Event Note (ED) - Evaluation Sepsis Screening Result: No Definite Risk - My Orders Last 24 Hours: My Active Orders 04/24/20 03:41 Chest 1V Frontal [CR] Urgent - Assessment/Plan Last 24 Hours: My Active Orders 04/24/20 03:41 Chest 1V Frontal [CR] Urgent
[2020-04-24 05:00] VITALS: BP 90/71; PULSE 97
--- NOTE | 2020-04-25 08:11 | CR ---
PROCEDURE INFORMATION: Exam: XR Chest Exam date and time: 04/24/2020 4:02 AM Age: 74 years old Clinical indication: Shortness of breath TECHNIQUE: Imaging protocol: XR of the chest Views: 1 view. COMPARISON: CR Chest 2V 12/22/2019 2:27 PM FINDINGS: Lungs: COPD. Pleural spaces: New small right pleural effusion. Heart/Mediastinum: Unremarkable. No cardiomegaly. Bones/joints: Unremarkable. IMPRESSION: COPD with new small right pleural effusion.
== END 2020-04-24 05:00 | disposition home or self-care (01) ==
LOC: DL.ED 03:02
DX: J44.1 Chronic obstructive pulmonary disease with (acute) exacerbation (principal); I10 Essential (primary) hypertension; Z79.899 Other long term (current) drug therapy; Z88.6 Allergy status to analgesic agent; Z88.8 Allergy status to other drugs, medicaments and biological substances
CPT/HCPCS: 36415; 71045; 85025; 94640; 96374; 99284; 99285; J2930; J7620-GY

== ENCOUNTER 2020-06-15 02:42 | Emergency (ER) | payer MEDICARE, OTHER ==
[2020-06-15] MEDS ORDERED: methylPREDNISolone Sodium Succinate 125 MG/2 ML SDV IVPUSH ONE (02:47)
[2020-06-15 02:53] VITALS: BP 168/78; PULSE 97
--- NOTE | 2020-06-15 03:12 | EDM.PDOC ---
ED HPI GENERAL MEDICAL PROBLEM - General Chief Complaint: Respiratory Problem Stated Complaint: HARD TO BREATHE, COUGH Time Seen by Provider: 06/15/20 02:55 Source of Information: Reports: Patient History Limitations: Reports: No Limitations - History of Present Illness INITIAL COMMENTS - FREE TEXT/NARRATIVE: ED with c/o SOB since 530 this zeke, Notes had to hurry through shower, [place] then [place] supper, Argument with neice and then breathing go worse. no fever or chills. Dry cough. - Related Data Allergies Allergy/AdvReac Type Severity Reaction Status Date / Time aspirin Allergy Other Verified 06/15/20 02:56 pseudoephedrine Allergy Arrhythmias Verified 06/15/20 02:56 Home Meds: Home Meds Losartan [Cozaar] 100 mg PO DAILY 12/06/13 [History] Metoprolol Succinate 25 mg PO DAILY 12/06/13 [History] amLODIPine Besylate [Amlodipine Besylate] 10 mg PO DAILY 12/06/13 [History] Cyclobenzaprine [Flexeril] 1 tab PO ASDIRECTED PRN 08/15/15 [History] Albuterol [Proair HFA] 2 puff INH Q4HR PRN 09/07/19 [History] hydroCHLOROthiazide [Hydrochlorothiazide] 50 mg PO DAILY 09/07/19 [History] guaiFENesin/Dextromethorphan [Guaifenesin-Dm 100-10 mg/5 ml] 10 ml PO Q4H 09/18/19 [History] ClonazePAM [KlonoPIN] 0.5 mg PO TID PRN 12/06/19 [History] Albuterol Sulfate 2.5 mg INH .Q4 HOURS NEEDED. 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: Musculoskeletal History: Reports: Osteoarthritis Neurological History: Reports: None Psychiatric History: Reports: Anxiety Endocrine/Metabolic History: Reports: None Hematologic History: Reports: None Immunologic History: Reports: None Oncologic (Cancer) History: Reports: Breast Dermatologic History: Reports: None, Other (See Below) Other Dermatologic History: dry skin - Infectious Disease History Infectious Disease History: Reports: Chicken Pox, Measles, Mumps - Past Surgical History Head Surgeries/Procedures: Reports: None HEENT Surgical History: Reports: Cataract Surgery Cardiovascular Surgical History: Reports: None Respiratory Surgical History: Reports: None GI Surgical History: Reports: Cholecystectomy Female Surgical History: Reports: Mastectomy Endocrine Surgical History: Reports: None Musculoskeletal Surgical History: Reports: None Oncologic Surgical History: Reports: Mastectomy Social & Family History - Family History Family Medical History: No Pertinent Family History - Tobacco Use Tobacco Use Status *Q: Light Tobacco User Years of Tobacco use: 57 Packs/Tins Daily: 0.1 - Caffeine Use Caffeine Use: Reports: Coffee - Recreational Drug Use Recreational Drug Use: No ED ROS GENERAL - Review of Systems Review Of Systems: Comprehensive ROS is negative, except as noted in HPI. ED EXAM, GENERAL - Physical Exam Exam: See Below Exam Limited By: No Limitations General Appearance: Alert, Mild Distress Ears: Normal External Exam, Hearing Grossly Normal Neck: Normal Inspection Respiratory/Chest: No Respiratory Distress, Wheezing (throughouht) Cardiovascular: Normal Peripheral Pulses, Regular Rate, Rhythm GI/Abdominal: Normal Bowel Sounds Neurological: Alert, Oriented Skin Exam: Warm, Dry, Intact, Normal Color #1 Interpretation EKG Date: 06/15/20 Time: 03:06 Rhythm: NSR Rate (Beats/Min): 84 [place]: Normal P-Wave: Present QRS: Normal ST-T: Normal Comparison: No Change Course - Vital Signs Last Recorded V/S: Last Vital Signs Temp 97.7 F 06/15/20 02:51 Pulse 97 06/15/20 02:51 Resp 32 H 06/15/20 02:51 BP 168/78 H 06/15/20 02:51 Pulse Ox 93 L 06/15/20 02:51 - Orders/Labs/Meds Orders: Active Orders 24 hr Category Date Time Status EKG Documentation Completion [RC] STAT Care 06/15/20 02:47 Active RT Aerosol Therapy [RC] ASDIRECTED Care 06/15/20 04:00 Active CULTURE BLOOD [BC] Stat Lab 06/15/20 03:01 Received Labs: Laboratory Tests 06/15/20 06/15/20 06/15/20 Range/Units 03:01 03:01 03:01 WBC 7.0 (5.0-10.0) 10^3/uL RBC 4.90 (4.2-5.4) 10^6/uL Hgb 14.8 (12.0-16.0) g/dL Hct 45.1 (37.0-47.0) % MCV 92.0 (80-100) fL MCH 30.2 (27.0-34.0) pg MCHC 32.8 L (33.0-35.0) g/dL Plt Count 298 (150-450) 10^3/uL Neut % (Auto) 49.7 (42.2-75.2) % Lymph % (Auto) 30.7 (20.5-50.1) % [place] % (Auto) 10.1 H (2-8) % Eos % (Auto) 9.1 H (1.0-3.0) % Baso % (Auto) 0.4 (0.0-1.0) % Sodium 140 (136-145) mmol/L Potassium 3.6 (3.5-5.1) mmol/L Chloride 104 (98-107) mmol/L Carbon Dioxide 28 (21-32) mmol/L Anion Gap 11.6 (7-13) mEq/L BUN 21 H (7-18) mg/dL Creatinine 1.09 H (0.55-1.02) mg/dL Est Cr Clr Drug Dosing 40.13 mL/min Estimated GFR (MDRD) 49 BUN/Creatinine Ratio 19.3 (No establ ref range) Glucose 93 (70-99) mg/dL Lactic Acid 0.7 (0.4-2.0) mmol/L Calcium 9.1 (8.5-10.1) mg/dL Magnesium 1.9 (1.8-2.4) mg/dL Total Bilirubin 0.3 (0.2-1.0) mg/dL AST 17 (15-37) U/L ALT 20 (14-59) U/L Alkaline Phosphatase 73 (46-116) U/L Troponin I < 0.017 (0.000-0.056) ng/mL B-Natriuretic Peptide 27 (0-100) pg/ml Total Protein 7.1 (6.4-8.2) g/dL Albumin 3.7 (3.4-5.0) g/dL Globulin 3.4 Albumin/Globulin Ratio 1.1 SARS-CoV-2 RNA (RENAE) (NEGATIVE) 06/15/20 Range/Units 03:08 WBC (5.0-10.0) 10^3/uL RBC (4.2-5.4) 10^6/uL Hgb (12.0-16.0) g/dL Hct (37.0-47.0) % MCV (80-100) fL MCH (27.0-34.0) pg MCHC (33.0-35.0) g/dL Plt Count (150-450) 10^3/uL Neut % (Auto) (42.2-75.2) % Lymph % (Auto) (20.5-50.1) % [place] % (Auto) (2-8) % Eos % (Auto) (1.0-3.0) % Baso % (Auto) (0.0-1.0) % Sodium (136-145) mmol/L Potassium (3.5-5.1) mmol/L Chloride (98-107) mmol/L Carbon Dioxide (21-32) mmol/L Anion Gap (7-13) mEq/L BUN (7-18) mg/dL Creatinine (0.55-1.02) mg/dL Est Cr Clr Drug Dosing mL/min Estimated GFR (MDRD) BUN/Creatinine Ratio (No establ ref range) Glucose (70-99) mg/dL Lactic Acid (0.4-2.0) mmol/L Calcium (8.5-10.1) mg/dL Magnesium (1.8-2.4) mg/dL Total Bilirubin (0.2-1.0) mg/dL AST (15-37) U/L ALT (14-59) U/L Alkaline Phosphatase (46-116) U/L Troponin I (0.000-0.056) ng/mL B-Natriuretic Peptide (0-100) pg/ml Total Protein (6.4-8.2) g/dL Albumin (3.4-5.0) g/dL Globulin Albumin/Globulin Ratio SARS-CoV-2 RNA (RENAE) Negative (NEGATIVE) Meds: Medications Discontinued Medications Generic Name Dose Route Start Last Admin Trade Name Freq PRN Reason Stop Dose Admin Albuterol/Ipratropium 3 ml 06/15/20 03:59 06/15/20 04:09 Albuterol/Ipratropium 3.0-0.5 Mg/3 Ml Neb Soln NEB 06/15/20 04:00 3 ml ONETIME ONE Administration Methylprednisolone Sodium Succinate 125 mg 06/15/20 02:47 06/15/20 03:20 Methylprednisolone Sodium Succinate 125 Mg/2 Ml Sdv IVPUSH 06/15/20 02:48 125 mg ONETIME ONE Administration - Re-Assessments/Exams Free Text/Narrative Re-Assessment/Exam: 06/15/20 04:36 improved airexchange , lessened wheeze, mid to lower. Departure - Departure Time of Disposition: 04:25 Disposition: Home, Self-Care 01 Condition: Good Clinical Impression: COPD exacerbation - Discharge Information *PRESCRIPTION DRUG MONITORING PROGRAM REVIEWED*: No *COPY OF PRESCRIPTION DRUG MONITORING REPORT IN PATIENT HANY: No Instructions: Acute Bronchitis, Adult, [id number] Forms: ED Department Discharge Additional Instructions: fluids, rest Diet as tolerated. prednsone 20mg daily for 3 days then 10mg time daily x 2 days Follow up if symptoms worsen Sepsis Event Note (ED) - Evaluation Sepsis Screening Result: No Definite Risk - Focused Exam Vital Signs: Vital Signs Temp Pulse Resp BP Pulse Ox 06/15/20 02:51 97.7 F 97 32 H 168/78 H 93 L - My Orders Last 24 Hours: My Active Orders 06/15/20 02:47 EKG Documentation Completion [RC] STAT 06/15/20 03:01 CULTURE BLOOD [BC] Stat 06/15/20 04:00 RT Aerosol Therapy [RC] ASDIRECTED - Assessment/Plan Last 24 Hours: My Active Orders 06/15/20 02:47 EKG Documentation Completion [RC] STAT 06/15/20 03:01 CULTURE BLOOD [BC] Stat 06/15/20 04:00 RT Aerosol Therapy [RC] ASDIRECTED
[2020-06-15 03:41] LABS: ANION GAP 11.6 mEq/L (7-13); CHLORIDE,CL 104 mmol/L (98-107); SODIUM,NA 140 mmol/L (136-145)
[2020-06-15] MEDS ORDERED: Albuterol/Ipratropium 3.0-0.5 MG/3 ML Neb Soln NEB ONE (03:59)
== END 2020-06-15 04:45 | disposition home or self-care (01) ==
LOC: DL.ED 02:42
DX: J44.1 Chronic obstructive pulmonary disease with (acute) exacerbation (principal); I10 Essential (primary) hypertension; Z20.822 Contact with and (suspected) exposure to COVID-19; Z88.6 Allergy status to analgesic agent; Z88.8 Allergy status to other drugs, medicaments and biological substances; Z79.899 Other long term (current) drug therapy; Z72.0 Tobacco use
CPT/HCPCS: 36415; 80053; 83605; 83735; 83880; 84484; 85025; 87040; 93005; 96374; 99285; J2930; U0002; 93010; 99284; J7620-GY

== ENCOUNTER 2022-05-13 16:20 | Emergency (ER) | payer MEDICARE, OTHER ==
[~2022-05-13 16:20] MED LIST: Adenosine 6 MG/2 ML SDV IVPUSH ONE
[2022-05-13] MEDS ORDERED: Adenosine 6 MG/2 ML SDV IVPUSH ONE (16:24)
[2022-05-13] MEDS ORDERED: Adenosine 12 MG/4 ML SDV ONE (16:26)
[2022-05-13] MEDS ORDERED: Metoprolol Tartrate 5 MG/5 ML SDV IVPUSH ONE (16:31)
[2022-05-13] MEDS ORDERED: Sodium Chloride 0.9% 10 ML Syringe FLUSH PRN (16:36)
[2022-05-13 17:31] LABS: PTT,PARTIAL THROMBOPLSTIN TIME 23.6 SEC (22.0-34.0)
[2022-05-13 17:38] LABS: ANION GAP 12.9 mEq/L (7-13); CHLORIDE,CL 106 mmol/L (98-107); ESTIMATED GFR 54 mL/min (>=60); SODIUM,NA 140 mmol/L (136-145)
[2022-05-13] MEDS ORDERED: Metoprolol Succinate 25 MG Tab.ER PO ONE (17:52)
[2022-05-13 18:26] VITALS: BP 153/71; PULSE 181
== END 2022-05-13 18:10 | disposition home or self-care (01) ==
LOC: DL.ED 16:20
DX: I47.1 Supraventricular tachycardia (principal); I10 Essential (primary) hypertension; J44.9 Chronic obstructive pulmonary disease, unspecified; Z88.8 Allergy status to other drugs, medicaments and biological substances; Z88.6 Allergy status to analgesic agent
CPT/HCPCS: 36415; 80053; 80307; 83605; 83735; 83880; 84145; 84443; 84484; 85025; 85610; 85730; 93005; 96374; 96375; 99285; A9270; J0153; J3490; 93010; 99284

== ENCOUNTER 2022-06-20 18:18 | Emergency (ER) | payer MEDICARE, OTHER ==
[2022-06-20] MEDS ORDERED: Sodium Chloride 0.9% 1,000 ML IV ONE (18:50)
[2022-06-20 19:24] LABS: PTT,PARTIAL THROMBOPLSTIN TIME 22.5 SEC (22.0-34.0)
[2022-06-20 19:28] LABS: ANION GAP 11.5 mEq/L (7-13); CHLORIDE,CL 106 mmol/L (98-107); SODIUM,NA 144 mmol/L (136-145)
[2022-06-20 19:32] LABS: ESTIMATED GFR 46 mL/min (>=60)
[2022-06-20 19:39] LABS: CORONAVIRUS COVID-19 NAA NEGATIVE (NEGATIVE); RESPIRATORY SYNCYTIAL VIR NAA NEGATIVE (NEGATIVE)
[2022-06-20 19:41] VITALS: BP 142/69; PULSE 86
[2022-06-20] MEDS ORDERED: Albuterol 0.083% 2.5 MG/3 ML Neb Soln NEB ONE (20:13)
== END 2022-06-20 20:55 | disposition home or self-care (01) ==
LOC: DL.ED 18:18
DX: R00.2 Palpitations (principal); I10 Essential (primary) hypertension; J44.9 Chronic obstructive pulmonary disease, unspecified; K21.9 Gastro-esophageal reflux disease without esophagitis; Z20.822 Contact with and (suspected) exposure to COVID-19; Z79.899 Other long term (current) drug therapy
CPT/HCPCS: 0241U; 36415; 71045; 80053; 81003; 82150; 83605; 83690; 83735; 83880; 84443; 84484; 85025; 85610; 85730; 86140; 93005; 94640; 96360; 99285; J7030; 93010; 99284; J7613-GY

== ENCOUNTER 2022-07-05 12:46 | Emergency (ER) | payer MEDICARE, OTHER ==
[2022-07-05] MEDS ORDERED: Sodium Chloride 0.9% 10 ML Syringe FLUSH PRN (12:57)
[2022-07-05] MEDS ORDERED: Sodium Chloride 0.9% 1,000 ML IV ONE (12:57)
[2022-07-05] MEDS ORDERED: Adenosine 6 MG/2 ML SDV IVPUSH ONE (12:57)
[2022-07-05] MEDS ORDERED: Metoprolol Tartrate 25 MG Tab PO ONE (13:04)
[2022-07-05] MEDS ORDERED: Metoclopramide 10 MG/2 ML SDV IVPUSH ONE (13:04)
[2022-07-05] MEDS ORDERED: Metoprolol Tartrate 5 MG/5 ML SDV ONE (13:09)
[2022-07-05 13:13] LABS: BASOPHILS PERCENT AUTO 0.3 % (0.0-1.0); EOSINOPHILS PERCENT AUTO 2.9 % (1.0-3.0); HEMATOCRIT 41.9 % (37.0-47.0); HEMOGLOBIN 14.3 g/dL (12.0-16.0); LYMPHOCYTES PERCENT AUTO 24.4 % (20.5-50.1); MEAN CORPUSCULAR HEMOGLOBIN 30.1 pg (27.0-34.0); MEAN CORPUSCULAR HGB CONC 34.1 g/dL (33.0-35.0); MEAN CORPUSCULAR VOLUME 88.2 fL (80-100); MONOCYTES PERCENT AUTO 8.4 % (2-8); PLATELET COUNT,PLT 264 10^3/uL (150-450); RED BLOOD CELL COUNT 4.75 10^6/uL (4.2-5.4); WHITE BLOOD CELL COUNT,WBC 7.3 10^3/uL (5.0-10.0)
[2022-07-05] MEDS ORDERED: Metoprolol Tartrate 5 MG/5 ML SDV IVPUSH ONE (13:17)
[2022-07-05 13:41] LABS: A/G RATIO 1.3; ALBUMIN 3.9 g/dL (3.4-5.0); ANION GAP 12.6 mEq/L (7-13); BILIRUBIN TOTAL 0.5 mg/dL (0.2-1.0); CALCIUM 9.1 mg/dL (8.5-10.1); EST CRCL DRUG DOSING (CG) 42.39 mL/min; MAGNESIUM 1.9 mg/dL (1.8-2.4); POTASSIUM,K 3.6 mmol/L (3.5-5.1); TSH ULTRASENSITIVE 1.7 uIU/mL (0.36-3.74)
[2022-07-05 15:27] VITALS: BP 92/53; PULSE 68
== END 2022-07-05 15:16 | disposition home or self-care (01) ==
LOC: DL.ED 12:46
DX: I47.1 Supraventricular tachycardia (principal); I10 Essential (primary) hypertension; J44.9 Chronic obstructive pulmonary disease, unspecified; Z88.8 Allergy status to other drugs, medicaments and biological substances; Z79.899 Other long term (current) drug therapy
CPT/HCPCS: 36415; 71045; 80053; 83735; 84443; 84484; 85025; 93005; 93010; 96374; 96375; 99284; 99285; A9270; J2765; J3490; J7030

== ENCOUNTER 2023-02-22 09:14 | Emergency (ER) | payer MEDICARE, OTHER ==
[~2023-02-22 09:14] MED LIST changes: -Adenosine 6 MG/2 ML SDV IVPUSH ONE; +Sodium Chloride 0.9% 1,000 ML IV ONE; +Sodium Chloride 0.9% 10 ML Syringe FLUSH PRN
[2023-02-22] MEDS ORDERED: Metoprolol Tartrate 5 MG/5 ML SDV IVPUSH ONE (09:16)
[2023-02-22 09:24] LABS: BASOPHILS PERCENT AUTO 0.2 % (0.0-1.0); EOSINOPHILS PERCENT AUTO 2.7 % (1.0-3.0); HEMATOCRIT 44.9 % (37.0-47.0); HEMOGLOBIN 15.1 g/dL (12.0-16.0); LYMPHOCYTES PERCENT AUTO 13.5 % (20.5-50.1); MEAN CORPUSCULAR HEMOGLOBIN 29.9 pg (27.0-34.0); MEAN CORPUSCULAR HGB CONC 33.6 g/dL (33.0-35.0); MEAN CORPUSCULAR VOLUME 88.9 fL (80-100); NEUTROPHILS PERCENT AUTO 77.6 % (42.2-75.2); PLATELET COUNT,PLT 254 10^3/uL (150-450); RED BLOOD CELL COUNT 5.05 10^6/uL (4.2-5.4); WHITE BLOOD CELL COUNT,WBC 10.8 10^3/uL (5.0-10.0)
[2023-02-22 09:42] LABS: A/G RATIO 0.9; ALBUMIN 3.4 g/dL (3.4-5.0); ANION GAP 14.3 mEq/L (7-13); BILIRUBIN TOTAL 0.6 mg/dL (0.2-1.0); BUN/CREATININE RATIO 19.5 (No establ ref range); C-REACTIVE PROTEIN 7.79 ng/dL (<=0.50); CALCIUM 8.8 mg/dL (8.5-10.1); CREATININE 1.33 mg/dL (0.55-1.02); EST CRCL DRUG DOSING (CG) 30.1 mL/min; POTASSIUM,K 3.3 mmol/L (3.5-5.1); PROTEIN TOTAL,TP 7.1 g/dL (6.4-8.2)
[2023-02-22] MEDS ORDERED: Potassium Chloride 10 MEQ Tab.ER PO ONE (09:59)
[2023-02-22] MEDS ORDERED: Sodium Chloride 0.9% 500 ML IV SCH (10:00)
[2023-02-22 10:08] VITALS: BP 120/54; PULSE 115
[2023-02-22] MEDS ORDERED: methylPREDNISolone Sodium Succinate 125 MG/2 ML SDV IVPUSH ONE (10:17)
== END 2023-02-22 10:37 | disposition home or self-care (01) ==
LOC: DL.ED 09:14
DX: I48.91 Unspecified atrial fibrillation (principal); J18.9 Pneumonia, unspecified organism; E86.0 Dehydration; J44.9 Chronic obstructive pulmonary disease, unspecified; K21.9 Gastro-esophageal reflux disease without esophagitis; Z90.49 Acquired absence of other specified parts of digestive tract; Z79.899 Other long term (current) drug therapy; Z88.6 Allergy status to analgesic agent; Z88.8 Allergy status to other drugs, medicaments and biological substances
CPT/HCPCS: 36415; 71045; 80053; 83735; 85025; 86140; 93005; 96374; 96375; 99285; A9270; J2930; J3490; J7030; J7040; 93010; 99284

== ENCOUNTER 2023-10-07 11:09 | Emergency (ER) | payer MEDICARE, OTHER ==
[2023-10-07 11:33] VITALS: BP 134/75
[2023-10-07 11:45] VITALS: PULSE 101
[2023-10-07] MEDS: Sodium Chloride 0.9% 10 ML Syringe FLUSH PRN (12:05)
[2023-10-07] MEDS: Albuterol/Ipratropium 3.0-0.5 MG/3 ML Neb Soln NEB ONE (12:05)
[2023-10-07] MEDS: methylPREDNISolone Sodium Succinate 125 MG/2 ML SDV IVPUSH ONE (12:08)
[2023-10-07 12:15] LABS: BASOPHILS PERCENT AUTO 0.1 % (0.0-1.0); EOSINOPHILS PERCENT AUTO 1.5 % (1.0-3.0); HEMATOCRIT 44.6 % (37.0-47.0); HEMOGLOBIN 15.1 g/dL (12.0-16.0); LYMPHOCYTES PERCENT AUTO 17.7 % (20.5-50.1); MEAN CORPUSCULAR HEMOGLOBIN 30.8 pg (27.0-34.0); MEAN CORPUSCULAR HGB CONC 33.9 g/dL (33.0-35.0); MEAN CORPUSCULAR VOLUME 90.8 fL (80-100); MONOCYTES PERCENT AUTO 6.9 % (2-8); NEUTROPHILS PERCENT AUTO 73.8 % (42.2-75.2); PLATELET COUNT,PLT 313 10^3/uL (150-450); RED BLOOD CELL COUNT 4.91 10^6/uL (4.2-5.4); WHITE BLOOD CELL COUNT,WBC 8.6 10^3/uL (5.0-10.0)
[2023-10-07 12:40] LABS: LACTIC ACID 0.7 mmol/L (0.4-2.0)
[2023-10-07 12:57] LABS: ALANINE AMINOTRANSFERASE,ALT 16 U/L (14-59); ALBUMIN 3.3 g/dL (3.4-5.0); ALKALINE PHOSPHATASE 107 U/L (46-116); ANION GAP 15.1 mEq/L (7-13); ASPARTATE AMNIOTRANSFERASE,AST 16 U/L (15-37); BILIRUBIN TOTAL 0.5 mg/dL (0.2-1.0); BLOOD UREA NITROGEN,BUN 14 mg/dL (7-18); BUN/CREATININE RATIO 14.4 (No establ ref range); C-REACTIVE PROTEIN 2.81 ng/dL (<=0.50); CALCIUM 9.2 mg/dL (8.5-10.1); CARBON DIOXIDE,CO2 24 mmol/L (21-32); CHLORIDE,CL 103 mmol/L (98-107); CREATININE 0.97 mg/dL (0.55-1.02); GLUCOSE RANDOM 99 mg/dL (70-99); POTASSIUM,K 4.1 mmol/L (3.5-5.1); PROTEIN TOTAL,TP 6.9 g/dL (6.4-8.2); SODIUM,NA 138 mmol/L (136-145)
[2023-10-07 13:00] LABS: A/G RATIO 0.92; ESTIMATED GFR 60 mL/min (>=60)
[2023-10-07] MEDS: Amoxicillin/Clavulanate K 875-125 MG Tab PO ONE (13:30)
== END 2023-10-07 13:38 | disposition home or self-care (01) ==
LOC: DL.ED 11:09
DX: J44.1 Chronic obstructive pulmonary disease with (acute) exacerbation (principal); E78.00 Pure hypercholesterolemia, unspecified; I10 Essential (primary) hypertension; Z90.49 Acquired absence of other specified parts of digestive tract; Z79.899 Other long term (current) drug therapy; Z88.8 Allergy status to other drugs, medicaments and biological substances
CPT/HCPCS: 36415; 71046; 80053; 83605; 84145; 85025; 86140; 87040; 87804; 94010; 94640; 96374; 99284; 99285; A9270; J2919; U0002; J3490; J7620-GY

== ENCOUNTER 2023-11-30 15:21 | Emergency (ER) | payer MEDICARE, OTHER ==
[2023-11-30 15:34] VITALS: BP 125/55; PULSE 83
[2023-11-30] MEDS ORDERED: Sodium Chloride 0.9% 10 ML Syringe FLUSH PRN (16:05)
[2023-11-30 16:30] LABS: BASOPHILS PERCENT AUTO 0.1 % (0.0-1.0); HEMATOCRIT 41.5 % (37.0-47.0); HEMOGLOBIN 13.9 g/dL (12.0-16.0); LYMPHOCYTES PERCENT AUTO 29.3 % (20.5-50.1); MEAN CORPUSCULAR HEMOGLOBIN 30.3 pg (27.0-34.0); MEAN CORPUSCULAR HGB CONC 33.5 g/dL (33.0-35.0); MEAN CORPUSCULAR VOLUME 90.4 fL (80-100); MONOCYTES PERCENT AUTO 7.7 % (2-8); NEUTROPHILS PERCENT AUTO 59.9 % (42.2-75.2); PLATELET COUNT,PLT 253 10^3/uL (150-450); RED BLOOD CELL COUNT 4.59 10^6/uL (4.2-5.4); WHITE BLOOD CELL COUNT,WBC 6.7 10^3/uL (5.0-10.0)
[2023-11-30 16:48] LABS: ALANINE AMINOTRANSFERASE,ALT 20 U/L (14-59); ALBUMIN 3.5 g/dL (3.4-5.0); ALKALINE PHOSPHATASE 99 U/L (46-116); ANION GAP 13.2 mEq/L (7-13); ASPARTATE AMNIOTRANSFERASE,AST 17 U/L (15-37); BILIRUBIN TOTAL 0.3 mg/dL (0.2-1.0); BLOOD UREA NITROGEN,BUN 19 mg/dL (7-18); BUN/CREATININE RATIO 18.4 (No establ ref range); CARBON DIOXIDE,CO2 27 mmol/L (21-32); CHLORIDE,CL 103 mmol/L (98-107); CREATININE 1.03 mg/dL (0.55-1.02); EST CRCL DRUG DOSING (CG) 38.24 mL/min; GLUCOSE RANDOM 97 mg/dL (70-99); POTASSIUM,K 3.2 mmol/L (3.5-5.1); SODIUM,NA 140 mmol/L (136-145)
[2023-11-30 16:50] LABS: C-REACTIVE PROTEIN < 0.50 ng/dL (<=0.50); ESTIMATED GFR 55 mL/min (>=60)
[2023-11-30 16:54] LABS: LACTIC ACID 1.2 mmol/L (0.4-2.0)
[2023-11-30] MEDS: Potassium Chloride 10 MEQ Tab.ER PO ONE (17:16)
== END 2023-11-30 17:23 | disposition home or self-care (01) ==
LOC: DL.ED 15:21
DX: S50.911D Unspecified superficial injury of right forearm, subsequent encounter (principal); L53.8 Other specified erythematous conditions; I10 Essential (primary) hypertension; J44.9 Chronic obstructive pulmonary disease, unspecified; F17.210 Nicotine dependence, cigarettes, uncomplicated; Z90.49 Acquired absence of other specified parts of digestive tract; Z79.899 Other long term (current) drug therapy; Z88.6 Allergy status to analgesic agent; Z88.8 Allergy status to other drugs, medicaments and biological substances; W23.1XXD Caught, crushed, jammed, or pinched between stationary objects, subsequent encounter
CPT/HCPCS: 36415; 73090; 80053; 83605; 84145; 85025; 86140; 87040; 87070; 87077; 99282; 99283; A9270

== ENCOUNTER 2024-01-16 16:08 | Emergency (ER) | payer MEDICARE, OTHER ==
[2024-01-16 16:32] VITALS: BP 111/53; PULSE 101
[2024-01-16 16:53] LABS: HEMATOCRIT 37.4 % (37.0-47.0); HEMOGLOBIN 12.4 g/dL (12.0-16.0); LYMPHOCYTES PERCENT AUTO 5.7 % (20.5-50.1); MEAN CORPUSCULAR HEMOGLOBIN 30.8 pg (27.0-34.0); MEAN CORPUSCULAR HGB CONC 33.2 g/dL (33.0-35.0); MONOCYTES PERCENT AUTO 1.7 % (2-8); NEUTROPHILS PERCENT AUTO 92.6 % (42.2-75.2); PLATELET COUNT,PLT 182 10^3/uL (150-450); RED BLOOD CELL COUNT 4.02 10^6/uL (4.2-5.4); WHITE BLOOD CELL COUNT,WBC 3.5 10^3/uL (5.0-10.0)
[2024-01-16] MEDS: Sodium Chloride 0.9% 1,000 ML IV ONE (17:01)
[2024-01-16 17:03] LABS: ANION GAP 13.5 mEq/L (7-13); BLOOD UREA NITROGEN,BUN 18 mg/dL (7-18); CALCIUM 8.8 mg/dL (8.5-10.1); CARBON DIOXIDE,CO2 26 mmol/L (21-32); CHLORIDE,CL 105 mmol/L (98-107); CREATININE 0.97 mg/dL (0.55-1.02); ESTIMATED GFR 59 mL/min (>=60); GLUCOSE RANDOM 140 mg/dL (70-99); MAGNESIUM 1.3 mg/dL (1.8-2.4); POTASSIUM,K 3.5 mmol/L (3.5-5.1); SODIUM,NA 141 mmol/L (136-145)
[2024-01-16] MEDS: Magnesium Sulfate/Water Premix 2 GM in Premix Bag 1 BAG IV ONE (17:13)
[2024-01-16 17:14] LABS: APPEARANCE,URINE SLIGHTLY CLOUDY (CLEAR); BILIRUBIN,URINE NEGATIVE (NEGATIVE); COLOR,URINE YELLOW (YELLOW); GLUCOSE,URINE NEGATIVE (NEGATIVE); KETONES,URINE NEGATIVE (NEGATIVE); LEUKOCYTE ESTERASE,URINE NEGATIVE (NEGATIVE); NITRITE,URINE NEGATIVE (NEGATIVE); OCCULT BLOOD,URINE NEGATIVE (NEGATIVE); PROTEIN,URINE NEGATIVE (NEGATIVE); UROBILINOGEN,URINE 0.2 mg/dL (0.2-1.0)
== END 2024-01-16 18:48 | disposition home or self-care (01) ==
LOC: DL.ED 16:08
DX: E83.42 Hypomagnesemia (principal); I10 Essential (primary) hypertension; Z90.49 Acquired absence of other specified parts of digestive tract; Z79.899 Other long term (current) drug therapy; Z88.6 Allergy status to analgesic agent; Z88.8 Allergy status to other drugs, medicaments and biological substances
CPT/HCPCS: 36415; 80048; 81003; 83735; 85025; 96361; 96365; 99284; 99284-25; J3475; J7030

== ENCOUNTER 2024-02-13 17:03 | Emergency (ER) | payer MEDICARE ==
[2024-02-13] MEDS ORDERED: Sodium Chloride 0.9% 10 ML Syringe FLUSH PRN (17:34)
[2024-02-13 17:41] LABS: HEMATOCRIT 36.9 % (37.0-47.0); HEMOGLOBIN 12.6 g/dL (12.0-16.0); LYMPHOCYTES PERCENT AUTO 12.2 % (20.5-50.1); MEAN CORPUSCULAR HGB CONC 34.1 g/dL (33.0-35.0); MEAN CORPUSCULAR VOLUME 93.7 fL (80-100); MONOCYTES PERCENT AUTO 6.7 % (2-8); NEUTROPHILS PERCENT AUTO 81.1 % (42.2-75.2); PLATELET COUNT,PLT 202 10^3/uL (150-450); RED BLOOD CELL COUNT 3.94 10^6/uL (4.2-5.4); WHITE BLOOD CELL COUNT,WBC 6.2 10^3/uL (5.0-10.0)
[2024-02-13 18:07] LABS: ALBUMIN 3.2 g/dL (3.4-5.0); ANION GAP 15.7 mEq/L (7-13); BILIRUBIN TOTAL 0.3 mg/dL (0.2-1.0); BUN/CREATININE RATIO 28.3 (No establ ref range); CALCIUM 8.4 mg/dL (8.5-10.1); CREATININE 0.99 mg/dL (0.55-1.02); EST CRCL DRUG DOSING (CG) 39.79 mL/min; MAGNESIUM 1.6 mg/dL (1.8-2.4); POTASSIUM,K 3.7 mmol/L (3.5-5.1); PROTEIN TOTAL,TP 6.4 g/dL (6.4-8.2); TSH ULTRASENSITIVE 1.36 uIU/mL (0.36-3.74)
[2024-02-13] MEDS: Sodium Chloride 0.9% 1,000 ML IV ONE (18:31)
[2024-02-13] MEDS: Albuterol 0.083% 2.5 MG/3 ML Neb Soln NEB ONE (18:41)
[2024-02-13] MEDS: Iopamidol 755 Mg/ML 100 ML Bottle IVPUSH ONE (19:12)
[2024-02-13 20:44] VITALS: BP 123/67; PULSE 87
== END 2024-02-13 20:39 | disposition home or self-care (01) ==
LOC: DL.ED 17:03
DX: R00.0 Tachycardia, unspecified (principal); E83.42 Hypomagnesemia; I10 Essential (primary) hypertension; J44.9 Chronic obstructive pulmonary disease, unspecified; Z90.49 Acquired absence of other specified parts of digestive tract; Z88.6 Allergy status to analgesic agent; Z88.8 Allergy status to other drugs, medicaments and biological substances; Z79.899 Other long term (current) drug therapy
CPT/HCPCS: 36415; 71275; 80053; 83735; 84443; 84484; 85025; 93005; 99285; J7030; Q9967; 93010; 99284; J7613-GY

== ENCOUNTER 2024-03-26 14:10 | Inpatient (IN) | payer MEDICARE, OTHER ==
[~2024-03-26 14:10] MED LIST changes: +Iopamidol 755 Mg/ML 100 ML Bottle IVPUSH ONE; -Sodium Chloride 0.9% 1,000 ML IV ONE; -Sodium Chloride 0.9% 10 ML Syringe FLUSH PRN
[2024-03-26] MEDS: Albuterol/Ipratropium 3.0-0.5 MG/3 ML Neb Soln NEB ONE (14:45)
[2024-03-26 14:48] LABS: HEMATOCRIT 39.4 % (37.0-47.0); HEMOGLOBIN 13.2 g/dL (12.0-16.0); MEAN CORPUSCULAR HEMOGLOBIN 31.1 pg (27.0-34.0); MEAN CORPUSCULAR HGB CONC 33.5 g/dL (33.0-35.0); MEAN CORPUSCULAR VOLUME 92.7 fL (80-100); PLATELET COUNT,PLT 240 10^3/uL (150-450); RED BLOOD CELL COUNT 4.25 10^6/uL (4.2-5.4); WHITE BLOOD CELL COUNT,WBC 8.3 10^3/uL (5.0-10.0)
[2024-03-26] MEDS: methylPREDNISolone Sodium Succinate 125 MG/2 ML SDV IVPUSH ONE (14:50)
[2024-03-26 14:52] LABS: BASOPHILS PERCENT AUTO 0.1 % (0.0-1.0); EOSINOPHILS PERCENT AUTO 1.2 % (1.0-3.0); LYMPHOCYTES PERCENT AUTO 9.7 % (20.5-50.1); MONOCYTES PERCENT AUTO 7.1 % (2-8); NEUTROPHILS PERCENT AUTO 81.9 % (42.2-75.2)
[2024-03-26 15:10] LABS: ANION GAP 15.3 mEq/L (7-13); BILIRUBIN DIRECT 0.2 mg/dL (0.0-0.2); BILIRUBIN INDIRECT 0.7; BILIRUBIN TOTAL 0.9 mg/dL (0.2-1.0); CALCIUM 8.8 mg/dL (8.5-10.1); CREATININE 0.96 mg/dL (0.55-1.02); EST CRCL DRUG DOSING (CG) 42.76 mL/min; POTASSIUM,K 3.3 mmol/L (3.5-5.1); PROTEIN TOTAL,TP 6.6 g/dL (6.4-8.2)
[2024-03-26 15:12] LABS: A/G RATIO 0.83
[2024-03-26 15:28] LABS: BAND PERCENT MAN 1 %; LYMPHOCYTES PERCENT MAN 11 % (20-50); MONOCYTES PERCENT MAN 4 % (2-8); SEG NEUTROPHILS PERCENT MAN 84 % (42-75)
[2024-03-26] MEDS: Iopamidol 755 Mg/ML 100 ML Bottle IVPUSH ONE (16:08)
[2024-03-26] MEDS: Albuterol 0.083% 2.5 MG/3 ML Neb Soln NEB ONE (16:54)
[2024-03-26] MEDS: Diltiazem 25 MG/5 ML SDV IVPUSH ONE ×2 (17:00→18:26)
[2024-03-26] MEDS: Sodium Chloride 0.9% 1,000 ML IV SCH (17:20)
[2024-03-26] MEDS: ClonazePAM 0.5 MG Tab PO ONE (17:29)
[2024-03-26] MEDS ORDERED: HYDROmorphone 0.5 MG/0.5 ML Syringe IVPUSH PRN (20:14)
[2024-03-26] MEDS ORDERED: Polyethylene Glycol 3350 Powder 17 GM Packet PO PRN (20:14)
[2024-03-26] MEDS ORDERED: Acetaminophen/HYDROcodone 325-5 MG Tab PO PRN (20:14)
[2024-03-26] MEDS ORDERED: Albuterol 0.083% 2.5 MG/3 ML Neb Soln NEB PRN (20:14)
[2024-03-26] MEDS ORDERED: Ondansetron 4 MG/2 ML SDV IVPUSH PRN (20:14)
[2024-03-26] MEDS ORDERED: Bisacodyl 5 MG Tab PO PRN (20:14)
[2024-03-26] MEDS ORDERED: Docusate Sodium 100 MG Cap PO PRN (20:14)
[2024-03-26] MEDS ORDERED: 50% Dextrose in Water 50 ML Syringe IVPUSH PRN (20:24)
[2024-03-26] MEDS ORDERED: Glucagon,Human Recombinant 1 MG Vial IM PRN (20:24)
[2024-03-26] MEDS ORDERED: LEVALBUTEROL INH PRN (21:05)
[2024-03-26] MEDS: Potassium Chloride 10 MEQ Tab.ER PO ONE (22:19)
[2024-03-26] MEDS: methylPREDNISolone Sodium Succinate 40 MG/1 ML SDV IVPUSH SCH (22:20)
[2024-03-26] MEDS: ClonazePAM 0.5 MG Tab PO PRN (22:20)
[2024-03-26] MEDS: Mometasone Furoate Powder 220 MCG/Puff 14 Dose Inhaler INH SCH (22:21)
[2024-03-27] MEDS ORDERED: Albuterol/Ipratropium 3.0-0.5 MG/3 ML Neb Soln NEB SCH
[2024-03-27 06:58] LABS: HEMATOCRIT 34.4 % (37.0-47.0); HEMOGLOBIN 11.6 g/dL (12.0-16.0); MEAN CORPUSCULAR HEMOGLOBIN 31.5 pg (27.0-34.0); MEAN CORPUSCULAR HGB CONC 33.7 g/dL (33.0-35.0); MEAN CORPUSCULAR VOLUME 93.5 fL (80-100); RED BLOOD CELL COUNT 3.68 10^6/uL (4.2-5.4); WHITE BLOOD CELL COUNT,WBC 2.6 10^3/uL (5.0-10.0)
[2024-03-27 07:12] LABS: ANION GAP 15.1 mEq/L (7-13); CALCIUM 8.4 mg/dL (8.5-10.1); CREATININE 0.97 mg/dL (0.55-1.02); EST CRCL DRUG DOSING (CG) 42.32 mL/min; POTASSIUM,K 4.1 mmol/L (3.5-5.1)
[2024-03-27] MEDS: Tiotropium Bromide 4 GM Inhalation Spray (2.5mcg/1 dose; 10 doses) INH SCH (07:26)
[2024-03-27] MEDS: Metoprolol Succinate 25 MG Tab.ER PO SCH (09:00)
[2024-03-27] MEDS: Acetaminophen 325 MG Tab PO PRN (09:29)
[2024-03-27] MEDS: Diltiazem 180 MG Cap.CD PO SCH (09:31)
[2024-03-27] MEDS: Azithromycin 250 MG Tab PO SCH (09:32)
[2024-03-27] MEDS: Nicotine 14 MG/24 Hr Patch TRDERM SCH (09:32)
[2024-03-27] MEDS: Enoxaparin 40 MG/0.4 ML Syringe SUBCUT SCH (09:33)
[2024-03-27] MEDS: cefTRIAXone 1 GM Vial IVPUSH SCH (09:33)
[2024-03-27] MEDS: Insulin Lispro 100 Units/ML 3 ML Vial SUBCUT SCH (09:52)
[2024-03-28 06:59] LABS: HEMATOCRIT 33.4 % (37.0-47.0); MEAN CORPUSCULAR HGB CONC 32.9 g/dL (33.0-35.0); MEAN CORPUSCULAR VOLUME 94.1 fL (80-100); RED BLOOD CELL COUNT 3.55 10^6/uL (4.2-5.4)
[2024-03-28 07:20] LABS: ANION GAP 12.6 mEq/L (7-13); CALCIUM 8.7 mg/dL (8.5-10.1); CREATININE 1.04 mg/dL (0.55-1.02); EST CRCL DRUG DOSING (CG) 39.47 mL/min; POTASSIUM,K 3.6 mmol/L (3.5-5.1)
[2024-03-28] MEDS: Potassium Chloride 10 MEQ Tab.ER PO SCH (09:02)
[2024-03-28] MEDS: Benzonatate 100 MG Cap PO PRN (20:16)
[2024-03-28] MEDS: Melatonin 3 MG Tab PO PRN (20:16)
[2024-03-29 06:55] LABS: HEMOGLOBIN 11.6 g/dL (12.0-16.0); MEAN CORPUSCULAR HEMOGLOBIN 30.9 pg (27.0-34.0); MEAN CORPUSCULAR HGB CONC 32.2 g/dL (33.0-35.0); RED BLOOD CELL COUNT 3.75 10^6/uL (4.2-5.4); WHITE BLOOD CELL COUNT,WBC 6.1 10^3/uL (5.0-10.0)
[2024-03-29 07:01] LABS: ANION GAP 15.4 mEq/L (7-13); CALCIUM 8.9 mg/dL (8.5-10.1); CREATININE 1.31 mg/dL (0.55-1.02); EST CRCL DRUG DOSING (CG) 31.33 mL/min; POTASSIUM,K 4.4 mmol/L (3.5-5.1)
[2024-03-30 06:32] LABS: HEMATOCRIT 34.5 % (37.0-47.0); HEMOGLOBIN 11.3 g/dL (12.0-16.0); MEAN CORPUSCULAR HEMOGLOBIN 31.6 pg (27.0-34.0); MEAN CORPUSCULAR HGB CONC 32.8 g/dL (33.0-35.0); MEAN CORPUSCULAR VOLUME 96.4 fL (80-100); RED BLOOD CELL COUNT 3.58 10^6/uL (4.2-5.4); WHITE BLOOD CELL COUNT,WBC 5.6 10^3/uL (5.0-10.0)
[2024-03-30 06:48] LABS: ANION GAP 12.9 mEq/L (7-13); CALCIUM 8.8 mg/dL (8.5-10.1); CREATININE 1.15 mg/dL (0.55-1.02); EST CRCL DRUG DOSING (CG) 35.69 mL/min; POTASSIUM,K 4.9 mmol/L (3.5-5.1)
[2024-03-30 11:05] VITALS: BP 92/79; PULSE 99
[2024-03-30] MEDS: ROFLUMILAST 500 MCG PO SCH (12:02)
== END 2024-03-30 11:35 | disposition home or self-care (01) | DRG 194 ==
LOC: DL.ED 14:10 → UNDOADMIN 18:03 → DL.MS 18:03 → DL.ED 19:23 → DL.MS 19:47 → UNDOADMIN 19:47 → DL.MS 20:14 → UNDODISIN 03-30 11:35
PROVIDERS: ADMIT Internal Medicine; ATTEND Internal Medicine
DX: J44.1 Chronic obstructive pulmonary disease with (acute) exacerbation (principal); J18.9 Pneumonia, unspecified organism; C34.90 Malignant neoplasm of unspecified part of unspecified bronchus or lung; J44.0 Chronic obstructive pulmonary disease with (acute) lower respiratory infection; J44.9 Chronic obstructive pulmonary disease, unspecified; J30.9 Allergic rhinitis, unspecified; Z66 Do not resuscitate; Z88.5 Allergy status to narcotic agent; E78.00 Pure hypercholesterolemia, unspecified; I10 Essential (primary) hypertension; K21.9 Gastro-esophageal reflux disease without esophagitis; M19.90 Unspecified osteoarthritis, unspecified site; F41.9 Anxiety disorder, unspecified; E86.0 Dehydration; E87.6 Hypokalemia; I48.91 Unspecified atrial fibrillation; Z72.0 Tobacco use; Z90.10 Acquired absence of unspecified breast and nipple; Z90.49 Acquired absence of other specified parts of digestive tract; Z98.890 Other specified postprocedural states; Z85.3 Personal history of malignant neoplasm of breast; Z79.899 Other long term (current) drug therapy; Z88.8 Allergy status to other drugs, medicaments and biological substances
CPT/HCPCS: 36415; 71045; 71275; 80048; 80076; 84484; 85025; 85379; 87040 ×2; 87428; 93005 ×2; 96361; 96374; 99285; A9270; J2919; J7030; Q9967; 82947; 85027; 94664; 97161-GP; 97165-GO; 99223; 99233; 99239; J0696; J1650; J1815-GY; J3490; J7613-GY; J7620-GY

== ENCOUNTER 2024-05-04 13:34 | Emergency (ER) | payer MEDICARE, OTHER ==
[2024-05-04 13:58] VITALS: BP 119/60; PULSE 91
[2024-05-04] MEDS: Albuterol/Ipratropium 3.0-0.5 MG/3 ML Neb Soln NEB ONE (14:07)
[2024-05-04] MEDS: Dexamethasone 4 MG/ML SDV IM ONE (14:07)
[2024-05-04 14:25] LABS: HEMATOCRIT 38.2 % (37.0-47.0); HEMOGLOBIN 12.3 g/dL (12.0-16.0); MEAN CORPUSCULAR HEMOGLOBIN 31.6 pg (27.0-34.0); MEAN CORPUSCULAR HGB CONC 32.2 g/dL (33.0-35.0); MEAN CORPUSCULAR VOLUME 98.2 fL (80-100); PLATELET COUNT,PLT 239 10^3/uL (150-450); RED BLOOD CELL COUNT 3.89 10^6/uL (4.2-5.4); WHITE BLOOD CELL COUNT,WBC 9.1 10^3/uL (5.0-10.0)
[2024-05-04 14:40] LABS: BASOPHILS PERCENT AUTO 0.5 % (0.0-1.0); EOSINOPHILS PERCENT AUTO 0.3 % (1.0-3.0); LYMPHOCYTES PERCENT AUTO 7.8 % (20.5-50.1); MONOCYTES PERCENT AUTO 5.9 % (2-8); NEUTROPHILS PERCENT AUTO 85.5 % (42.2-75.2)
[2024-05-04 14:43] LABS: ANION GAP 16.5 mEq/L (7-13); BILIRUBIN TOTAL 0.3 mg/dL (0.2-1.0); BUN/CREATININE RATIO 17.1 (No establ ref range); C-REACTIVE PROTEIN 2.29 ng/dL (<=0.50); CALCIUM 9.2 mg/dL (8.5-10.1); CREATININE 1.29 mg/dL (0.55-1.02); EST CRCL DRUG DOSING (CG) 30.54 mL/min; POTASSIUM,K 4.5 mmol/L (3.5-5.1); PROTEIN TOTAL,TP 6.6 g/dL (6.4-8.2)
[2024-05-04 14:44] LABS: A/G RATIO 0.83
[2024-05-04 15:07] LABS: BAND PERCENT MAN 2 %; LYMPHOCYTES PERCENT MAN 7 % (20-50); MONOCYTES PERCENT MAN 5 % (2-8); SEG NEUTROPHILS PERCENT MAN 86 % (42-75)
== END 2024-05-04 15:40 | disposition home or self-care (01) ==
LOC: DL.ED 13:34
DX: J18.9 Pneumonia, unspecified organism (principal); I10 Essential (primary) hypertension; J44.0 Chronic obstructive pulmonary disease with (acute) lower respiratory infection; Z88.8 Allergy status to other drugs, medicaments and biological substances; Z88.6 Allergy status to analgesic agent; Z79.899 Other long term (current) drug therapy; Z90.49 Acquired absence of other specified parts of digestive tract
CPT/HCPCS: 36415; 71046; 80053; 85025; 86140; 96372; 99285; A9270; J1100

== ENCOUNTER 2024-05-07 13:44 | Emergency (ER) | payer MEDICARE, OTHER ==
[2024-05-07] MEDS: Dexamethasone 4 MG/ML SDV IM ONE (14:24)
[2024-05-07] MEDS: Albuterol/Ipratropium 3.0-0.5 MG/3 ML Neb Soln NEB ONE (14:24)
[2024-05-07 14:49] VITALS: BP 116/73; PULSE 88
== END 2024-05-07 14:53 | disposition home or self-care (01) ==
LOC: DL.ED 13:44
DX: J44.1 Chronic obstructive pulmonary disease with (acute) exacerbation (principal); I10 Essential (primary) hypertension; E78.00 Pure hypercholesterolemia, unspecified; K21.9 Gastro-esophageal reflux disease without esophagitis; Z79.899 Other long term (current) drug therapy; Z88.5 Allergy status to narcotic agent; Z88.8 Allergy status to other drugs, medicaments and biological substances
CPT/HCPCS: 96372; 99284; A9270-GY; J1100

== ENCOUNTER 2024-05-31 20:24 | Emergency (ER) | payer MEDICARE, OTHER ==
[2024-05-31] MEDS ORDERED: Sodium Chloride 0.9% 10 ML Syringe FLUSH PRN (20:48)
[2024-05-31 21:04] LABS: HEMATOCRIT 37.7 % (37.0-47.0); HEMOGLOBIN 12.4 g/dL (12.0-16.0); MEAN CORPUSCULAR HEMOGLOBIN 32.1 pg (27.0-34.0); MEAN CORPUSCULAR HGB CONC 32.9 g/dL (33.0-35.0); MEAN CORPUSCULAR VOLUME 97.7 fL (80-100); PLATELET COUNT,PLT 291 10^3/uL (150-450); RED BLOOD CELL COUNT 3.86 10^6/uL (4.2-5.4); WHITE BLOOD CELL COUNT,WBC 4.5 10^3/uL (5.0-10.0)
[2024-05-31 21:12] LABS: BASOPHILS PERCENT AUTO 0.2 % (0.0-1.0); EOSINOPHILS PERCENT AUTO 1.3 % (1.0-3.0); LYMPHOCYTES PERCENT AUTO 12.3 % (20.5-50.1); MONOCYTES PERCENT AUTO 12.6 % (2-8); NEUTROPHILS PERCENT AUTO 73.6 % (42.2-75.2)
[2024-05-31 21:27] LABS: ALBUMIN 3.1 g/dL (3.4-5.0); BILIRUBIN TOTAL 0.3 mg/dL (0.2-1.0); BUN/CREATININE RATIO 21.4 (No establ ref range); CALCIUM 9.2 mg/dL (8.5-10.1); CREATININE 1.26 mg/dL (0.55-1.02); EST CRCL DRUG DOSING (CG) 31.26 mL/min; MAGNESIUM 1.6 mg/dL (1.8-2.4); PROTEIN TOTAL,TP 6.7 g/dL (6.4-8.2)
[2024-05-31 21:29] LABS: ANION GAP 14.8 mEq/L (7-13); LYMPHOCYTES PERCENT MAN 10 % (20-50); MONOCYTES PERCENT MAN 17 % (2-8); POTASSIUM,K 3.8 mmol/L (3.5-5.1); SEG NEUTROPHILS PERCENT MAN 73 % (42-75)
[2024-05-31 21:30] LABS: A/G RATIO 0.86
[2024-05-31] MEDS: Iopamidol 755 Mg/ML 100 ML Bottle IVPUSH ONE (21:44)
[2024-05-31] MEDS: Magnesium Sulf/Wat 2 GM/50 mL 2 GM in Premix Bag 1 BAG IV ONE (21:51)
[2024-05-31] MEDS: Sodium Chloride 0.9% 1,000 ML IV SCH (21:52)
[2024-05-31] MEDS: Sodium Chloride 0.9% 500 ML IV ONE (22:03)
[2024-05-31] MEDS: methylPREDNISolone Sodium Succinate 40 MG/1 ML SDV IVPUSH ONE (23:50)
[2024-06-01 00:27] VITALS: BP 115/58; PULSE 76
[2024-06-01] MEDS: guaiFENesin/Dextromethorphan 100-10 MG/5 ML Soln 5 ML Cup PO ONE (01:24)
== END 2024-06-01 01:23 | disposition home or self-care (01) ==
LOC: DL.ED 20:24
DX: J44.1 Chronic obstructive pulmonary disease with (acute) exacerbation (principal); I10 Essential (primary) hypertension; I48.91 Unspecified atrial fibrillation; M19.90 Unspecified osteoarthritis, unspecified site; Z88.8 Allergy status to other drugs, medicaments and biological substances; Z88.6 Allergy status to analgesic agent; Z79.899 Other long term (current) drug therapy; Z79.02 Long term (current) use of antithrombotics/antiplatelets; Z90.710 Acquired absence of both cervix and uterus
CPT/HCPCS: 71275; 80053; 83735; 83880; 84484; 85025; 85610; 87428; 93005; 96365; 96375; 99285; J2919; J3475; J7030; Q9967

== ENCOUNTER 2024-06-16 11:04 | Emergency (ER) | payer MEDICARE, OTHER ==
[2024-06-16 11:35] LABS: HEMATOCRIT 39.5 % (37.0-47.0); HEMOGLOBIN 13.2 g/dL (12.0-16.0); MEAN CORPUSCULAR HGB CONC 33.4 g/dL (33.0-35.0); MEAN CORPUSCULAR VOLUME 98.8 fL (80-100); PLATELET COUNT,PLT 208 10^3/uL (150-450); WHITE BLOOD CELL COUNT,WBC 7.8 10^3/uL (5.0-10.0)
[2024-06-16 11:36] LABS: BASOPHILS PERCENT AUTO 0.6 % (0.0-1.0); EOSINOPHILS PERCENT AUTO 1.2 % (1.0-3.0); LYMPHOCYTES PERCENT AUTO 8.4 % (20.5-50.1); MONOCYTES PERCENT AUTO 5.7 % (2-8); NEUTROPHILS PERCENT AUTO 84.1 % (42.2-75.2)
[2024-06-16 11:40] LABS: ANION GAP 14.2 mEq/L (7-13); BLOOD UREA NITROGEN,BUN 27 mg/dL (7-18); C-REACTIVE PROTEIN < 0.50 ng/dL (<=0.50); CALCIUM 9.3 mg/dL (8.5-10.1); CARBON DIOXIDE,CO2 26 mmol/L (21-32); CHLORIDE,CL 108 mmol/L (98-107); CREATININE 0.91 mg/dL (0.55-1.02); EST CRCL DRUG DOSING (CG) 43.29 mL/min; ESTIMATED GFR 64 mL/min (>=60); GLUCOSE RANDOM 123 mg/dL (70-99); MAGNESIUM 1.6 mg/dL (1.8-2.4); POTASSIUM,K 4.2 mmol/L (3.5-5.1); SODIUM,NA 144 mmol/L (136-145)
[2024-06-16] MEDS: Iopamidol 612 MG/ML 100 ML Bottle IVPUSH ONE (11:45)
[2024-06-16 12:26] LABS: BAND PERCENT MAN 6 %; LYMPHOCYTES PERCENT MAN 6 % (20-50); MONOCYTES PERCENT MAN 3 % (2-8); SEG NEUTROPHILS PERCENT MAN 85 % (42-75)
[2024-06-16 13:52] VITALS: BP 113/71; PULSE 66
== END 2024-06-16 13:35 | disposition home or self-care (01) ==
LOC: DL.ED 11:04
DX: J18.9 Pneumonia, unspecified organism (principal); I10 Essential (primary) hypertension; E03.9 Hypothyroidism, unspecified; M19.90 Unspecified osteoarthritis, unspecified site; J44.9 Chronic obstructive pulmonary disease, unspecified; Z88.8 Allergy status to other drugs, medicaments and biological substances; Z88.6 Allergy status to analgesic agent; Z79.899 Other long term (current) drug therapy; Z79.02 Long term (current) use of antithrombotics/antiplatelets; Z90.49 Acquired absence of other specified parts of digestive tract
CPT/HCPCS: 36415; 71260; 80048; 83735; 85025; 86140; 99284; Q9967

== ENCOUNTER 2024-07-05 21:31 | Emergency (ER) | payer MEDICARE, OTHER ==
[2024-07-05 22:01] VITALS: BP 120/55; PULSE 89
[2024-07-05] MEDS ORDERED: methylPREDNISolone Sodium Succinate 125 MG/2 ML SDV IVPUSH ONE (22:46)
[2024-07-05] MEDS: methylPREDNISolone Sodium Succinate 125 MG/2 ML SDV IM ONE (22:58)
[2024-07-05] MEDS: Albuterol/Ipratropium 3.0-0.5 MG/3 ML Neb Soln NEB ONE (23:02)
[2024-07-05 23:12] LABS: BASOPHILS PERCENT AUTO 0.4 % (0.0-1.0); HEMATOCRIT 39.8 % (37.0-47.0); LYMPHOCYTES PERCENT AUTO 20.1 % (20.5-50.1); MEAN CORPUSCULAR HEMOGLOBIN 32.4 pg (27.0-34.0); MEAN CORPUSCULAR HGB CONC 32.7 g/dL (33.0-35.0); MEAN CORPUSCULAR VOLUME 99.3 fL (80-100); MONOCYTES PERCENT AUTO 13.3 % (2-8); NEUTROPHILS PERCENT AUTO 62.2 % (42.2-75.2); PLATELET COUNT,PLT 246 10^3/uL (150-450); RED BLOOD CELL COUNT 4.01 10^6/uL (4.2-5.4); WHITE BLOOD CELL COUNT,WBC 5.3 10^3/uL (5.0-10.0)
[2024-07-05 23:32] LABS: A/G RATIO 1.1; ALBUMIN 3.6 g/dL (3.4-5.0); BILIRUBIN TOTAL 0.3 mg/dL (0.2-1.0); BUN/CREATININE RATIO 21.8 (No establ ref range); CALCIUM 9.4 mg/dL (8.5-10.1); CREATININE 1.1 mg/dL (0.55-1.02); EST CRCL DRUG DOSING (CG) 35.81 mL/min; PROTEIN TOTAL,TP 6.8 g/dL (6.4-8.2)
== END 2024-07-06 00:17 | disposition home or self-care (01) ==
LOC: DL.ED 21:31
DX: J44.1 Chronic obstructive pulmonary disease with (acute) exacerbation (principal); I10 Essential (primary) hypertension; Z88.8 Allergy status to other drugs, medicaments and biological substances; Z79.899 Other long term (current) drug therapy; Z86.16 Personal history of COVID-19; Z90.49 Acquired absence of other specified parts of digestive tract; Z87.891 Personal history of nicotine dependence
CPT/HCPCS: 36415; 71046; 80053; 85025; 94640; 96372; 99285; A9270; J2919; 99284

== ENCOUNTER 2024-07-14 14:25 | Emergency (ER) | payer MEDICARE, OTHER ==
[2024-07-14] MEDS ORDERED: Sodium Chloride 0.9% 10 ML Syringe FLUSH PRN (14:50)
[2024-07-14] MEDS: Dexamethasone 4 MG/ML SDV IV ONE (15:16)
[2024-07-14 15:17] LABS: HEMATOCRIT 40.2 % (37.0-47.0); HEMOGLOBIN 14.3 g/dL (12.0-16.0); MEAN CORPUSCULAR HEMOGLOBIN 35.5 pg (27.0-34.0); MEAN CORPUSCULAR HGB CONC 35.6 g/dL (33.0-35.0); MEAN CORPUSCULAR VOLUME 99.8 fL (80-100); PLATELET COUNT,PLT 242 10^3/uL (150-450); RED BLOOD CELL COUNT 4.03 10^6/uL (4.2-5.4); WHITE BLOOD CELL COUNT,WBC 7.5 10^3/uL (5.0-10.0)
[2024-07-14 15:26] LABS: BASOPHILS PERCENT AUTO 0.3 % (0.0-1.0); EOSINOPHILS PERCENT AUTO 2.7 % (1.0-3.0); LYMPHOCYTES PERCENT AUTO 11.8 % (20.5-50.1); MONOCYTES PERCENT AUTO 8.6 % (2-8); NEUTROPHILS PERCENT AUTO 76.6 % (42.2-75.2)
[2024-07-14] MEDS: Albuterol/Ipratropium 3.0-0.5 MG/3 ML Neb Soln NEB ONE (15:38)
[2024-07-14 15:43] VITALS: BP 112/79; PULSE 72
[2024-07-14 15:46] LABS: ALBUMIN 3.2 g/dL (3.4-5.0); ANION GAP 9.9 mEq/L (7-13); BILIRUBIN TOTAL 0.6 mg/dL (0.2-1.0); BUN/CREATININE RATIO 18.6 (No establ ref range); CALCIUM 9.7 mg/dL (8.5-10.1); CREATININE 1.13 mg/dL (0.55-1.02); EST CRCL DRUG DOSING (CG) 34.86 mL/min; POTASSIUM,K 3.9 mmol/L (3.5-5.1); PROTEIN TOTAL,TP 6.2 g/dL (6.4-8.2)
[2024-07-14 15:53] LABS: A/G RATIO 1.07
[2024-07-14 16:12] LABS: INR 0.9 (0.9-1.2); PROTHROMBIN TIME 9.7 SEC (9.0-12.0); PTT,PARTIAL THROMBOPLSTIN TIME 22.5 SEC (22.0-34.0)
[2024-07-14 16:19] LABS: EOSINOPHILS PERCENT MAN 4 % (1-3); LYMPHOCYTES PERCENT MAN 10 % (20-50); MONOCYTES PERCENT MAN 6 % (2-8); SEG NEUTROPHILS PERCENT MAN 80 % (42-75)
== END 2024-07-14 16:11 | disposition home or self-care (01) ==
LOC: DL.ED 14:25
DX: J44.1 Chronic obstructive pulmonary disease with (acute) exacerbation (principal); I10 Essential (primary) hypertension; E78.00 Pure hypercholesterolemia, unspecified; Z86.16 Personal history of COVID-19; Z90.49 Acquired absence of other specified parts of digestive tract; Z87.891 Personal history of nicotine dependence; Z79.899 Other long term (current) drug therapy; Z88.8 Allergy status to other drugs, medicaments and biological substances
CPT/HCPCS: 36415; 71046; 80053; 83880; 84484; 85025; 85610; 85730; 93005; 93010; 96374; 99284; 99285; A9270; J1100

== ENCOUNTER 2024-07-17 15:24 | Emergency (ER) | payer MEDICARE, OTHER ==
[2024-07-17] MEDS: Albuterol/Ipratropium 3.0-0.5 MG/3 ML Neb Soln NEB ONE (15:50)
[2024-07-17 16:00] LABS: HEMATOCRIT 37.1 % (37.0-47.0); MEAN CORPUSCULAR HEMOGLOBIN 32.8 pg (27.0-34.0); MEAN CORPUSCULAR HGB CONC 32.3 g/dL (33.0-35.0); MEAN CORPUSCULAR VOLUME 101.4 fL (80-100); PLATELET COUNT,PLT 220 10^3/uL (150-450); RED BLOOD CELL COUNT 3.66 10^6/uL (4.2-5.4); WHITE BLOOD CELL COUNT,WBC 7.2 10^3/uL (5.0-10.0)
[2024-07-17 16:04] LABS: BASOPHILS PERCENT AUTO 0.4 % (0.0-1.0); EOSINOPHILS PERCENT AUTO 0.6 % (1.0-3.0); LYMPHOCYTES PERCENT AUTO 13.1 % (20.5-50.1); MONOCYTES PERCENT AUTO 11.3 % (2-8); NEUTROPHILS PERCENT AUTO 74.6 % (42.2-75.2)
[2024-07-17 16:15] LABS: INR 0.9 (0.9-1.2); PROTHROMBIN TIME 9.6 SEC (9.0-12.0)
[2024-07-17] MEDS: methylPREDNISolone Sodium Succinate 125 MG/2 ML SDV IVPUSH ONE (16:18)
[2024-07-17] MEDS: Sodium Chloride 0.9% 10 ML Syringe FLUSH PRN (16:19)
[2024-07-17 16:21] LABS: ALANINE AMINOTRANSFERASE,ALT 24 U/L (14-59); ALBUMIN 3.1 g/dL (3.4-5.0); ALKALINE PHOSPHATASE 58 U/L (46-116); ANION GAP 12.3 mEq/L (7-13); ASPARTATE AMNIOTRANSFERASE,AST 12 U/L (15-37); BILIRUBIN TOTAL 0.4 mg/dL (0.2-1.0); BLOOD UREA NITROGEN,BUN 35 mg/dL (7-18); BUN/CREATININE RATIO 29.2 (No establ ref range); CALCIUM 8.9 mg/dL (8.5-10.1); CARBON DIOXIDE,CO2 27 mmol/L (21-32); CHLORIDE,CL 108 mmol/L (98-107); GLUCOSE RANDOM 136 mg/dL (70-99); MAGNESIUM 1.8 mg/dL (1.8-2.4); POTASSIUM,K 3.3 mmol/L (3.5-5.1); PROTEIN TOTAL,TP 5.9 g/dL (6.4-8.2); SODIUM,NA 144 mmol/L (136-145)
[2024-07-17 16:30] LABS: A/G RATIO 1.11; ESTIMATED GFR 46 mL/min (>=60)
[2024-07-17 16:55] VITALS: BP 109/55; PULSE 73
[2024-07-17] MEDS: Take Home: predniSONE 20 MG, 4 Tab Pack PO ONE (17:13)
[2024-07-17 17:14] LABS: LYMPHOCYTES PERCENT MAN 10 % (20-50); MONOCYTES PERCENT MAN 10 % (2-8); SEG NEUTROPHILS PERCENT MAN 80 % (42-75)
== END 2024-07-17 17:20 | disposition home or self-care (01) ==
LOC: DL.ED 15:24
DX: J44.1 Chronic obstructive pulmonary disease with (acute) exacerbation (principal); I10 Essential (primary) hypertension; M19.90 Unspecified osteoarthritis, unspecified site; Z88.8 Allergy status to other drugs, medicaments and biological substances; Z88.6 Allergy status to analgesic agent; Z79.899 Other long term (current) drug therapy; Z79.02 Long term (current) use of antithrombotics/antiplatelets; Z86.16 Personal history of COVID-19; Z90.49 Acquired absence of other specified parts of digestive tract
CPT/HCPCS: 36415; 71046; 80053; 83735; 84484; 85025; 85610; 93005; 94640; 96374; 99285; A9270; J2919; 93010; 99284

== ENCOUNTER 2024-07-25 09:48 | Emergency (ER) | payer MEDICARE, OTHER ==
[2024-07-25 10:16] LABS: APPEARANCE,URINE CLEAR (CLEAR); BILIRUBIN,URINE NEGATIVE (NEGATIVE); COLOR,URINE YELLOW (YELLOW); GLUCOSE,URINE NEGATIVE (NEGATIVE); KETONES,URINE NEGATIVE (NEGATIVE); LEUKOCYTE ESTERASE,URINE NEGATIVE (NEGATIVE); NITRITE,URINE NEGATIVE (NEGATIVE); OCCULT BLOOD,URINE TRACE-INTACT (NEGATIVE); PROTEIN,URINE NEGATIVE (NEGATIVE); UROBILINOGEN,URINE 0.2 mg/dL (0.2-1.0)
[2024-07-25 10:26] LABS: BACTERIA,URINE RARE /HPF (0-FEW/HPF); EPITHELIAL CELLS,URINE RARE /HPF (NOT SEEN); MUCUS,URINE FEW /LPF (NOT SEEN); RBC,URINE 0-5 /HPF (0-5); WBC,URINE 0-5 /HPF (0-5/HPF)
[2024-07-25] MEDS ORDERED: Albuterol/Ipratropium 3.0-0.5 MG/3 ML Neb Soln ONE (10:58)
[2024-07-25] MEDS: Albuterol/Ipratropium 3.0-0.5 MG/3 ML Neb Soln NEB ONE (11:01)
[2024-07-25 11:22] VITALS: BP 130/59; PULSE 78
== END 2024-07-25 11:24 | disposition left against medical advice (07) ==
LOC: DL.ED 09:48
DX: R10.9 Unspecified abdominal pain (principal); I10 Essential (primary) hypertension; J44.9 Chronic obstructive pulmonary disease, unspecified; Z86.16 Personal history of COVID-19; Z90.49 Acquired absence of other specified parts of digestive tract; Z88.6 Allergy status to analgesic agent; Z88.8 Allergy status to other drugs, medicaments and biological substances; Z79.899 Other long term (current) drug therapy
CPT/HCPCS: 81001; 99282; 99284; A9270

== ENCOUNTER 2024-08-21 09:49 | Emergency (ER) | payer MEDICARE, OTHER ==
[2024-08-21] MEDS: Albuterol 6.7 GM Inhaler INH ONE (10:27)
[2024-08-21 10:40] LABS: ALLEN TEST PERFORMED; BICARBONATE,ARTERIAL 23.6 mmol/L (22-26); O2 DELIVERY DEVICE NASAL CANNULA; O2 SATURATION ARTERIAL 95 % (95-100); PCO2 ARTERIAL 38 mmHg (35-45); PH,ARTERIAL 7.41 (7.35-7.45); PO2 ARTERIAL 79 mmHg (70-100)
[2024-08-21 10:44] LABS: HEMATOCRIT 38.1 % (37.0-47.0); HEMOGLOBIN 12.4 g/dL (12.0-16.0); MEAN CORPUSCULAR HEMOGLOBIN 32.8 pg (27.0-34.0); MEAN CORPUSCULAR HGB CONC 32.5 g/dL (33.0-35.0); MEAN CORPUSCULAR VOLUME 100.8 fL (80-100); PLATELET COUNT,PLT 175 10^3/uL (150-450); RED BLOOD CELL COUNT 3.78 10^6/uL (4.2-5.4); WHITE BLOOD CELL COUNT,WBC 6.1 10^3/uL (5.0-10.0)
[2024-08-21 10:45] LABS: BASOPHILS PERCENT AUTO 0.5 % (0.0-1.0); EOSINOPHILS PERCENT AUTO 2.5 % (1.0-3.0); LYMPHOCYTES PERCENT AUTO 13.7 % (20.5-50.1); MONOCYTES PERCENT AUTO 8.4 % (2-8); NEUTROPHILS PERCENT AUTO 74.9 % (42.2-75.2)
[2024-08-21 11:02] LABS: ALBUMIN 3.3 g/dL (3.4-5.0); ANION GAP 10.7 mEq/L (7-13); BILIRUBIN TOTAL 0.5 mg/dL (0.2-1.0); BUN/CREATININE RATIO 15.5 (No establ ref range); CALCIUM 8.8 mg/dL (8.5-10.1); CREATININE 0.97 mg/dL (0.55-1.02); EST CRCL DRUG DOSING (CG) 40.61 mL/min; MAGNESIUM 1.7 mg/dL (1.8-2.4); POTASSIUM,K 3.7 mmol/L (3.5-5.1); PROTEIN TOTAL,TP 6.1 g/dL (6.4-8.2)
[2024-08-21 11:03] LABS: A/G RATIO 1.18
[2024-08-21 11:05] LABS: LACTIC ACID 0.6 mmol/L (0.4-2.0)
[2024-08-21 11:09] LABS: BAND PERCENT MAN 3 %; EOSINOPHILS PERCENT MAN 2 % (1-3); LYMPHOCYTES PERCENT MAN 13 % (20-50); MONOCYTES PERCENT MAN 7 % (2-8); SEG NEUTROPHILS PERCENT MAN 75 % (42-75)
[2024-08-21 11:20] VITALS: BP 127/70; PULSE 79
[2024-08-21] MEDS: predniSONE 20 MG Tab PO ONE (11:48)
[2024-08-21] MEDS: Take Home: predniSONE 20 MG, 4 Tab Pack PO ONE (12:08)
[2024-08-21] MEDS: Take Home: Amoxicillin/Clavulanate K 875-125 MG Tab, 6 Tab Pack PO ONE (12:08)
[2024-08-21] MEDS: Take Home: Ondansetron 4 MG Tab.DIS, 5 Tab Pack PO ONE (12:08)
== END 2024-08-21 12:10 | disposition home or self-care (01) ==
LOC: DL.ED 09:49
DX: J44.1 Chronic obstructive pulmonary disease with (acute) exacerbation (principal); I10 Essential (primary) hypertension; Z86.16 Personal history of COVID-19; Z90.49 Acquired absence of other specified parts of digestive tract; Z87.891 Personal history of nicotine dependence; Z88.6 Allergy status to analgesic agent; Z88.8 Allergy status to other drugs, medicaments and biological substances; Z79.899 Other long term (current) drug therapy
CPT/HCPCS: 36415; 36600; 71045; 80053; 82803; 83605; 83735; 84484; 85025; 93005; 93010; 94640; 99284; 99285; A9270; J7512; Q0162

== ENCOUNTER 2024-09-07 15:26 | Emergency (ER) | payer MEDICARE, OTHER ==
[2024-09-07 16:02] LABS: PLATELET COUNT,PLT 244 10^3/uL (150-450); RED BLOOD CELL COUNT 4.33 10^6/uL (4.2-5.4); WHITE BLOOD CELL COUNT,WBC 4.8 10^3/uL (5.0-10.0)
[2024-09-07 16:07] LABS: BASOPHILS PERCENT AUTO 0.0 % (0.0-1.0); EOSINOPHILS PERCENT AUTO 0.4 % (1.0-3.0); LYMPHOCYTES PERCENT AUTO 8.8 % (20.5-50.1); MONOCYTES PERCENT AUTO 1.3 % (2-8); NEUTROPHILS PERCENT AUTO 89.5 % (42.2-75.2)
[2024-09-07 16:33] LABS: A/G RATIO 1.0; ALANINE AMINOTRANSFERASE,ALT 27.0 U/L (14-59); ASPARTATE AMNIOTRANSFERASE,AST 19.0 U/L (15-37); BILIRUBIN TOTAL 0.3 mg/dL (0.2-1.0); BLOOD UREA NITROGEN,BUN 20.0 mg/dL (7-18); CARBON DIOXIDE,CO2 24.0 mmol/L (21-32); CHLORIDE,CL 108.0 mmol/L (98-107); CREATININE 1.19 mg/dL (0.55-1.02); EST CRCL DRUG DOSING (CG) 33.1 mL/min; GLUCOSE RANDOM 165.0 mg/dL (70-99); POTASSIUM,K 3.7 mmol/L (3.5-5.1); PROTEIN TOTAL,TP 7.1 g/dL (6.4-8.2); SODIUM,NA 143.0 mmol/L (136-145)
[2024-09-07 16:34] LABS: ESTIMATED GFR 47.0 mL/min (>=60)
[2024-09-07] MEDS: Metoprolol Tartrate 5 MG/5 ML SDV IVPUSH ONE (17:10)
[2024-09-07 17:33] LABS: BAND PERCENT MAN 5 %; EOSINOPHILS PERCENT MAN 2 % (1-3); LYMPHOCYTES PERCENT MAN 11 % (20-50); MONOCYTES PERCENT MAN 1 % (2-8); SEG NEUTROPHILS PERCENT MAN 81 % (42-75)
[2024-09-07] MEDS: Diltiazem 180 MG Cap.CD PO ONE (17:51)
[2024-09-07 18:10] VITALS: BP 167/100; PULSE 112
== END 2024-09-07 18:26 | disposition home or self-care (01) ==
LOC: DL.ED 15:26
DX: R00.0 Tachycardia, unspecified (principal); J44.9 Chronic obstructive pulmonary disease, unspecified; E86.0 Dehydration; I10 Essential (primary) hypertension; Z86.16 Personal history of COVID-19; Z90.49 Acquired absence of other specified parts of digestive tract; Z88.6 Allergy status to analgesic agent; Z88.8 Allergy status to other drugs, medicaments and biological substances; Z79.899 Other long term (current) drug therapy
CPT/HCPCS: 36415; 71045; 80053; 84484; 85025; 93005; 93010; 96361; 96374; 99284; 99285-25; A9270-GY; J3490; J7040

== ENCOUNTER 2024-09-20 09:36 | Emergency (ER) | payer MEDICARE, OTHER ==
[2024-09-20] MEDS ORDERED: Sodium Chloride 0.9% 10 ML Syringe FLUSH PRN (09:51)
[2024-09-20] MEDS: methylPREDNISolone Sodium Succinate 125 MG/2 ML SDV IM ONE (10:12)
[2024-09-20 10:19] LABS: PLATELET COUNT,PLT 213 10^3/uL (150-450); RED BLOOD CELL COUNT 4.30 10^6/uL (4.2-5.4); WHITE BLOOD CELL COUNT,WBC 6.5 10^3/uL (5.0-10.0)
[2024-09-20 10:23] LABS: EOSINOPHILS PERCENT AUTO 4.9 % (1.0-3.0); LYMPHOCYTES PERCENT AUTO 12.8 % (20.5-50.1); MONOCYTES PERCENT AUTO 8.6 % (2-8); NEUTROPHILS PERCENT AUTO 73.4 % (42.2-75.2)
[2024-09-20 10:24] LABS: BASOPHILS PERCENT AUTO 0.3 % (0.0-1.0)
[2024-09-20 10:38] LABS: A/G RATIO 1.1; ALANINE AMINOTRANSFERASE,ALT 24.0 U/L (14-59); ASPARTATE AMNIOTRANSFERASE,AST 18.0 U/L (15-37); BILIRUBIN TOTAL 0.6 mg/dL (0.2-1.0); BLOOD UREA NITROGEN,BUN 13.0 mg/dL (7-18); CARBON DIOXIDE,CO2 29.0 mmol/L (21-32); CHLORIDE,CL 105.0 mmol/L (98-107); CREATININE 0.74 mg/dL (0.55-1.02); EST CRCL DRUG DOSING (CG) 53.23 mL/min; GLUCOSE RANDOM 101.0 mg/dL (70-99); POTASSIUM,K 3.6 mmol/L (3.5-5.1); PROTEIN TOTAL,TP 6.7 g/dL (6.4-8.2); SODIUM,NA 143.0 mmol/L (136-145)
[2024-09-20 10:39] LABS: ESTIMATED GFR 82.0 mL/min (>=60)
[2024-09-20 10:40] VITALS: PULSE 88
[2024-09-20 10:42] LABS: EOSINOPHILS PERCENT MAN 9 % (1-3); LYMPHOCYTES PERCENT MAN 17 % (20-50); MONOCYTES PERCENT MAN 8 % (2-8); SEG NEUTROPHILS PERCENT MAN 66 % (42-75)
[2024-09-20 11:06] VITALS: BP 137/65
== END 2024-09-20 11:07 | disposition home or self-care (01) ==
LOC: DL.ED 09:36
DX: J44.9 Chronic obstructive pulmonary disease, unspecified (principal); E78.00 Pure hypercholesterolemia, unspecified; I10 Essential (primary) hypertension; K21.9 Gastro-esophageal reflux disease without esophagitis; Z86.16 Personal history of COVID-19; Z90.49 Acquired absence of other specified parts of digestive tract; Z88.6 Allergy status to analgesic agent; Z88.8 Allergy status to other drugs, medicaments and biological substances; Z79.899 Other long term (current) drug therapy
CPT/HCPCS: 36415; 71046; 80053; 85025; 86140; 87040; 94640; 96372; 99284; 99285; A9270; J2919

== ENCOUNTER 2024-09-26 16:48 | Emergency (ER) | payer MEDICARE, OTHER ==
[2024-09-26] MEDS: methylPREDNISolone Sodium Succinate 125 MG/2 ML SDV IVPUSH ONE (17:17)
[2024-09-26 17:18] LABS: PLATELET COUNT,PLT 236 10^3/uL (150-450); RED BLOOD CELL COUNT 4.57 10^6/uL (4.2-5.4); WHITE BLOOD CELL COUNT,WBC 7.7 10^3/uL (5.0-10.0)
[2024-09-26 17:22] LABS: BASOPHILS PERCENT AUTO 0.3 % (0.0-1.0); EOSINOPHILS PERCENT AUTO 2.2 % (1.0-3.0); LYMPHOCYTES PERCENT AUTO 14.7 % (20.5-50.1); MONOCYTES PERCENT AUTO 7.4 % (2-8); NEUTROPHILS PERCENT AUTO 75.4 % (42.2-75.2)
[2024-09-26] MEDS: Albuterol 0.083% 2.5 MG/3 ML Neb Soln NEB ONE (17:31)
[2024-09-26 17:35] LABS: B-TYPE NATRIURETIC PEPTIDE,BNP 137.0 pg/ml (0-100)
[2024-09-26 17:38] LABS: A/G RATIO 1.3; ALANINE AMINOTRANSFERASE,ALT 44.0 U/L (14-59); ASPARTATE AMNIOTRANSFERASE,AST 18.0 U/L (15-37); BILIRUBIN TOTAL 0.4 mg/dL (0.2-1.0); BLOOD UREA NITROGEN,BUN 26.0 mg/dL (7-18); CARBON DIOXIDE,CO2 28.0 mmol/L (21-32); CHLORIDE,CL 108.0 mmol/L (98-107); CREATININE 0.86 mg/dL (0.55-1.02); EST CRCL DRUG DOSING (CG) 47.73 mL/min; GLUCOSE RANDOM 101.0 mg/dL (70-99); POTASSIUM,K 3.4 mmol/L (3.5-5.1); PROTEIN TOTAL,TP 6.4 g/dL (6.4-8.2); SODIUM,NA 146.0 mmol/L (136-145)
[2024-09-26 17:51] VITALS: BP 159/85; PULSE 79
[2024-09-26 17:59] LABS: ESTIMATED GFR 69.0 mL/min (>=60)
[2024-09-26 18:23] LABS: BAND PERCENT MAN 3 %; EOSINOPHILS PERCENT MAN 3 % (1-3); LYMPHOCYTES PERCENT MAN 15 % (20-50); MONOCYTES PERCENT MAN 4 % (2-8)
[2024-09-26 18:24] LABS: SEG NEUTROPHILS PERCENT MAN 75 % (42-75)
[2024-09-26] MEDS: Budesonide 0.5 MG/2 ML Neb Susp NEB ONE (18:30)
[2024-09-26] MEDS: methylPREDNISolone 4 MG Tab 21 Tab/Dosepak PO SCH (18:38)
== END 2024-09-26 18:42 | disposition home or self-care (01) ==
LOC: DL.ED 16:48
DX: J44.1 Chronic obstructive pulmonary disease with (acute) exacerbation (principal); I10 Essential (primary) hypertension; E78.00 Pure hypercholesterolemia, unspecified; Z88.8 Allergy status to other drugs, medicaments and biological substances; Z79.899 Other long term (current) drug therapy; Z86.16 Personal history of COVID-19; Z90.49 Acquired absence of other specified parts of digestive tract
CPT/HCPCS: 36415; 71045; 80053; 83880; 84484; 85025; 93005; 96374; 99285; A9270; J2919; J7509

== ENCOUNTER 2024-10-10 17:08 | Emergency (ER) | payer MEDICARE, OTHER ==
[2024-10-10] MEDS: Dexamethasone 4 MG/ML SDV IVPUSH ONE (17:31)
[2024-10-10 17:36] LABS: O2 DELIVERY DEVICE BIPAP
[2024-10-10 17:37] LABS: BASE EXCESS VENOUS 1.0 mmol/l ((-2)-(+3)); BICARBONATE,VENOUS 26 mmol/l (19-25); O2 SATURATION VENOUS 90.2 % (60-80); PCO2 VENOUS 43 mmHg (41-51); PH,VENOUS 7.40 (7.31-7.41); PO2 VENOUS 65 mmHg (35-42)
[2024-10-10 17:42] LABS: PLATELET COUNT,PLT 189 10^3/uL (150-450); RED BLOOD CELL COUNT 4.24 10^6/uL (4.2-5.4); WHITE BLOOD CELL COUNT,WBC 7.5 10^3/uL (5.0-10.0)
[2024-10-10 17:46] LABS: NEUTROPHILS PERCENT AUTO 85.1 % (42.2-75.2)
[2024-10-10 17:47] LABS: BASOPHILS PERCENT AUTO 0.3 % (0.0-1.0); EOSINOPHILS PERCENT AUTO 1.5 % (1.0-3.0); LYMPHOCYTES PERCENT AUTO 7.8 % (20.5-50.1); MONOCYTES PERCENT AUTO 5.3 % (2-8)
[2024-10-10 18:00] LABS: LACTIC ACID 2.0 mmol/L (0.4-2.0)
[2024-10-10 18:25] LABS: BAND PERCENT MAN 2 %; EOSINOPHILS PERCENT MAN 2 % (1-3); LYMPHOCYTES PERCENT MAN 6 % (20-50); MONOCYTES PERCENT MAN 7 % (2-8); SEG NEUTROPHILS PERCENT MAN 84 % (42-75)
[2024-10-10 18:26] VITALS: PULSE 75
[2024-10-10 18:26] LABS: ALANINE AMINOTRANSFERASE,ALT 37.0 U/L (14-59); ASPARTATE AMNIOTRANSFERASE,AST 17.0 U/L (15-37); BILIRUBIN TOTAL 0.3 mg/dL (0.2-1.0); BLOOD UREA NITROGEN,BUN 26.0 mg/dL (7-18); CARBON DIOXIDE,CO2 26.0 mmol/L (21-32); CHLORIDE,CL 109.0 mmol/L (98-107); CREATININE 0.85 mg/dL (0.55-1.02); EST CRCL DRUG DOSING (CG) 46.34 mL/min; GLUCOSE RANDOM 154.0 mg/dL (70-99); POTASSIUM,K 3.8 mmol/L (3.5-5.1); PROTEIN TOTAL,TP 5.9 g/dL (6.4-8.2); SODIUM,NA 143.0 mmol/L (136-145)
[2024-10-10 18:27] LABS: A/G RATIO 1.19; ESTIMATED GFR 70.0 mL/min (>=60)
[2024-10-10 19:35] VITALS: BP 189/116
[2024-10-10] MEDS: Take Home: predniSONE 20 MG, 4 Tab Pack PO ONE (19:44)
== END 2024-10-10 19:34 | disposition home or self-care (01) ==
LOC: DL.ED 17:08
DX: J44.9 Chronic obstructive pulmonary disease, unspecified (principal); E78.00 Pure hypercholesterolemia, unspecified; I10 Essential (primary) hypertension; K21.9 Gastro-esophageal reflux disease without esophagitis; Z88.6 Allergy status to analgesic agent; Z88.8 Allergy status to other drugs, medicaments and biological substances; Z79.899 Other long term (current) drug therapy; Z86.16 Personal history of COVID-19; Z90.49 Acquired absence of other specified parts of digestive tract
CPT/HCPCS: 36415; 71045; 80053; 82803; 83605; 84484; 85025; 93005; 94640; 96374; 99285; A9270; J1100; 93010; 99283

== ENCOUNTER 2024-10-14 10:28 | Inpatient (IN) | payer MEDICARE, OTHER ==
[2024-10-14] MEDS ORDERED: Sodium Chloride 0.9% 10 ML Syringe FLUSH PRN ×2 (11:11→14:55)
[2024-10-14] MEDS: methylPREDNISolone Sodium Succinate 125 MG/2 ML SDV IVPUSH ONE (11:14)
[2024-10-14 11:25] LABS: PLATELET COUNT,PLT 197 10^3/uL (150-450); RED BLOOD CELL COUNT 4.31 10^6/uL (4.2-5.4); WHITE BLOOD CELL COUNT,WBC 6.1 10^3/uL (5.0-10.0)
[2024-10-14 11:28] LABS: LYMPHOCYTES PERCENT AUTO 7.3 % (20.5-50.1); NEUTROPHILS PERCENT AUTO 82.9 % (42.2-75.2)
[2024-10-14 11:29] LABS: BASOPHILS PERCENT AUTO 0.2 % (0.0-1.0); EOSINOPHILS PERCENT AUTO 1.2 % (1.0-3.0); MONOCYTES PERCENT AUTO 8.4 % (2-8)
[2024-10-14 11:47] LABS: ALANINE AMINOTRANSFERASE,ALT 57.0 U/L (14-59); ASPARTATE AMNIOTRANSFERASE,AST 21.0 U/L (15-37); BILIRUBIN TOTAL 0.4 mg/dL (0.2-1.0); BLOOD UREA NITROGEN,BUN 24.0 mg/dL (7-18); CARBON DIOXIDE,CO2 32.0 mmol/L (21-32); CHLORIDE,CL 109.0 mmol/L (98-107); CREATININE 0.78 mg/dL (0.55-1.02); EST CRCL DRUG DOSING (CG) 50.5 mL/min; GLUCOSE RANDOM 90.0 mg/dL (70-99); LACTIC ACID 1.3 mmol/L (0.4-2.0); POTASSIUM,K 3.3 mmol/L (3.5-5.1); PROTEIN TOTAL,TP 5.5 g/dL (6.4-8.2); SODIUM,NA 146.0 mmol/L (136-145)
[2024-10-14 11:52] LABS: B-TYPE NATRIURETIC PEPTIDE,BNP 127.0 pg/ml (0-100)
[2024-10-14 12:03] LABS: EOSINOPHILS PERCENT MAN 1 % (1-3); LYMPHOCYTES PERCENT MAN 6 % (20-50); MONOCYTES PERCENT MAN 8 % (2-8); SEG NEUTROPHILS PERCENT MAN 85 % (42-75)
[2024-10-14 12:04] LABS: A/G RATIO 1.04; ESTIMATED GFR 77.0 mL/min (>=60)
[2024-10-14 12:05] LABS: INR 0.9 (0.9-1.2); PTT,PARTIAL THROMBOPLSTIN TIME 20.5 SEC (22.0-34.0)
[2024-10-14] MEDS ORDERED: Sennosides/Docusate Sodium 50-8.6 MG Tab PO PRN (14:55)
[2024-10-14] MEDS: Furosemide 40 MG/4 ML VIAL IVPUSH ONE (16:03)
[2024-10-14] MEDS: Formoterol/Mometasone 200-5 MCG 8.8 GM Inhaler INH SCH (16:19)
[2024-10-14] MEDS: Potassium Chloride 10 MEQ Tab.ER PO ONE (16:19)
[2024-10-14] MEDS: Al and Mag Hydroxide/Diphenhydramine/Lidocaine/Simethicone 237 ML Bottle PO SCH (17:20)
[2024-10-14] MEDS: LEVALBUTEROL 0.63 MG NEB SCH (18:03)
[2024-10-14] MEDS: Ipratropium 0.02% 0.5 MG/2.5 ML Neb Soln NEB SCH (18:03)
[2024-10-14] MEDS: methylPREDNISolone Sodium Succinate 125 MG/2 ML SDV IVPUSH SCH (20:18)
[2024-10-14] MEDS: Albuterol 0.021% 0.63 MG/3 ML Neb Soln INH PRN (20:18)
[2024-10-14] MEDS: Sodium Chloride 0.9% 10 ML Syringe FLUSH SCH (20:23)
[2024-10-14] MEDS ORDERED: LEVALBUTEROL 0.63 MG INH SCH (21:00)
[2024-10-15 06:22] LABS: BASOPHILS PERCENT AUTO 0.0 % (0.0-1.0); EOSINOPHILS PERCENT AUTO 0.0 % (1.0-3.0); LYMPHOCYTES PERCENT AUTO 4.8 % (20.5-50.1); MONOCYTES PERCENT AUTO 1.0 % (2-8); NEUTROPHILS PERCENT AUTO 94.2 % (42.2-75.2); PLATELET COUNT,PLT 198 10^3/uL (150-450); RED BLOOD CELL COUNT 4.15 10^6/uL (4.2-5.4); WHITE BLOOD CELL COUNT,WBC 5.0 10^3/uL (5.0-10.0)
[2024-10-15 06:46] LABS: ALANINE AMINOTRANSFERASE,ALT 49.0 U/L (14-59); ASPARTATE AMNIOTRANSFERASE,AST 12.0 U/L (15-37); BILIRUBIN TOTAL 0.4 mg/dL (0.2-1.0); BLOOD UREA NITROGEN,BUN 32.0 mg/dL (7-18); CARBON DIOXIDE,CO2 29.0 mmol/L (21-32); CHLORIDE,CL 105.0 mmol/L (98-107); CREATININE 1.13 mg/dL (0.55-1.02); EST CRCL DRUG DOSING (CG) 34.86 mL/min; GLUCOSE RANDOM 162.0 mg/dL (70-99); POTASSIUM,K 3.9 mmol/L (3.5-5.1); PROTEIN TOTAL,TP 5.6 g/dL (6.4-8.2); SODIUM,NA 143.0 mmol/L (136-145)
[2024-10-15 06:48] LABS: A/G RATIO 1.0; ESTIMATED GFR 49.0 mL/min (>=60)
[2024-10-15] MEDS: Diltiazem 180 MG Cap.CD PO SCH (07:50)
[2024-10-15] MEDS ORDERED: Al and Mag Hydroxide/Diphenhydramine/Lidocaine/Simethicone 237 ML Bottle PO PRN (09:06)
[2024-10-15] MEDS: ROFLUMILAST PO SCH (10:06)
[2024-10-15] MEDS: Tiotropium Bromide 4 GM Inhalation Spray (2.5mcg/1 dose; 10 doses) INH SCH (10:11)
[2024-10-16 06:29] LABS: PLATELET COUNT,PLT 202 10^3/uL (150-450); RED BLOOD CELL COUNT 4.17 10^6/uL (4.2-5.4); WHITE BLOOD CELL COUNT,WBC 9.5 10^3/uL (5.0-10.0)
[2024-10-16 06:31] LABS: BASOPHILS PERCENT AUTO 0.2 % (0.0-1.0); EOSINOPHILS PERCENT AUTO 0.0 % (1.0-3.0); LYMPHOCYTES PERCENT AUTO 3.1 % (20.5-50.1); MONOCYTES PERCENT AUTO 2.0 % (2-8); NEUTROPHILS PERCENT AUTO 94.7 % (42.2-75.2)
[2024-10-16 06:50] LABS: BAND PERCENT MAN 2 %; LYMPHOCYTES PERCENT MAN 3 % (20-50); MONOCYTES PERCENT MAN 2 % (2-8); SEG NEUTROPHILS PERCENT MAN 93 % (42-75)
[2024-10-16 06:59] LABS: ALANINE AMINOTRANSFERASE,ALT 46.0 U/L (14-59); ASPARTATE AMNIOTRANSFERASE,AST 18.0 U/L (15-37); BILIRUBIN TOTAL 0.3 mg/dL (0.2-1.0); BLOOD UREA NITROGEN,BUN 35.0 mg/dL (7-18); CARBON DIOXIDE,CO2 31.0 mmol/L (21-32); CHLORIDE,CL 106.0 mmol/L (98-107); CREATININE 0.96 mg/dL (0.55-1.02); EST CRCL DRUG DOSING (CG) 41.03 mL/min; GLUCOSE RANDOM 141.0 mg/dL (70-99); POTASSIUM,K 4.1 mmol/L (3.5-5.1); PROTEIN TOTAL,TP 5.5 g/dL (6.4-8.2); SODIUM,NA 142.0 mmol/L (136-145)
[2024-10-16 07:00] LABS: A/G RATIO 1.04; ESTIMATED GFR 60.0 mL/min (>=60)
[2024-10-16] MEDS: Ondansetron 4 MG/2 ML SDV IVPUSH PRN (08:50)
[2024-10-17 06:28] LABS: BASOPHILS PERCENT AUTO 0.1 % (0.0-1.0); EOSINOPHILS PERCENT AUTO 0.0 % (1.0-3.0); LYMPHOCYTES PERCENT AUTO 2.7 % (20.5-50.1); MONOCYTES PERCENT AUTO 1.4 % (2-8); NEUTROPHILS PERCENT AUTO 95.8 % (42.2-75.2); PLATELET COUNT,PLT 187 10^3/uL (150-450); RED BLOOD CELL COUNT 3.98 10^6/uL (4.2-5.4); WHITE BLOOD CELL COUNT,WBC 9.5 10^3/uL (5.0-10.0)
[2024-10-17 06:52] LABS: ALANINE AMINOTRANSFERASE,ALT 42.0 U/L (14-59); ASPARTATE AMNIOTRANSFERASE,AST 13.0 U/L (15-37); BILIRUBIN TOTAL 0.3 mg/dL (0.2-1.0); BLOOD UREA NITROGEN,BUN 42.0 mg/dL (7-18); CARBON DIOXIDE,CO2 29.0 mmol/L (21-32); CHLORIDE,CL 106.0 mmol/L (98-107); CREATININE 1.11 mg/dL (0.55-1.02); EST CRCL DRUG DOSING (CG) 35.49 mL/min; GLUCOSE RANDOM 128.0 mg/dL (70-99); POTASSIUM,K 4.6 mmol/L (3.5-5.1); PROTEIN TOTAL,TP 5.2 g/dL (6.4-8.2); SODIUM,NA 141.0 mmol/L (136-145)
[2024-10-17 06:54] LABS: A/G RATIO 1.17; ESTIMATED GFR 51.0 mL/min (>=60)
[2024-10-17 12:35] VITALS: BP 136/78; PULSE 81
[2024-10-17] MEDS: Take Home: predniSONE 20 MG, 4 Tab Pack PO ONE (13:15)
[2024-10-17] MEDS: Take Home: Amoxicillin/Clavulanate K 875-125 MG Tab, 6 Tab Pack PO ONE (13:15)
[2024-10-17] MEDS ORDERED: Amoxicillin/Clavulanate K 875-125 MG Tab PO SCH (21:00)
== END 2024-10-17 13:24 | disposition home or self-care (01) | DRG 191 ==
LOC: DL.ED 10:28 → DL.MS 13:54 → OBSVTOIN 10-16 23:19
PROVIDERS: ADMIT Student in an Organized Health Care Education/Training Program; ATTEND Student in an Organized Health Care Education/Training Program
DX: J44.1 Chronic obstructive pulmonary disease with (acute) exacerbation (principal); E87.0 Hyperosmolality and hypernatremia; N17.9 Acute kidney failure, unspecified; Z66 Do not resuscitate; I11.0 Hypertensive heart disease with heart failure; I50.9 Heart failure, unspecified; E87.6 Hypokalemia; E03.9 Hypothyroidism, unspecified; J30.9 Allergic rhinitis, unspecified; E78.00 Pure hypercholesterolemia, unspecified; K21.9 Gastro-esophageal reflux disease without esophagitis; M19.90 Unspecified osteoarthritis, unspecified site; F41.9 Anxiety disorder, unspecified; Z85.3 Personal history of malignant neoplasm of breast; Z85.118 Personal history of other malignant neoplasm of bronchus and lung; Z86.16 Personal history of COVID-19; Z98.49 Cataract extraction status, unspecified eye; Z79.899 Other long term (current) drug therapy; Z88.8 Allergy status to other drugs, medicaments and biological substances; Z90.49 Acquired absence of other specified parts of digestive tract; Z98.890 Other specified postprocedural states
CPT/HCPCS: 36415; 71045; 80053; 83605; 83735; 83880; 84484; 85025; 85610; 85730; 86140; 87040; 93005; 94010; 94640; 94667; 97161-GP; 97165-GO; 99223; 99233; 99238; A9270-GY; J0456; J0696; J1650; J1938; J2405; J2919; J7050; J7512; J7613; J7644

== ENCOUNTER 2024-10-20 13:19 | Emergency (ER) | payer MEDICARE, OTHER ==
[2024-10-20 13:46] LABS: PLATELET COUNT,PLT 197 10^3/uL (150-450); RED BLOOD CELL COUNT 4.46 10^6/uL (4.2-5.4); WHITE BLOOD CELL COUNT,WBC 9.4 10^3/uL (5.0-10.0)
[2024-10-20 13:47] LABS: BASOPHILS PERCENT AUTO 0.1 % (0.0-1.0); EOSINOPHILS PERCENT AUTO 0.0 % (1.0-3.0); LYMPHOCYTES PERCENT AUTO 3.0 % (20.5-50.1); MONOCYTES PERCENT AUTO 1.4 % (2-8); NEUTROPHILS PERCENT AUTO 95.5 % (42.2-75.2)
[2024-10-20 14:00] VITALS: PULSE 67
[2024-10-20 14:01] LABS: ALANINE AMINOTRANSFERASE,ALT 68 U/L (14-59); ASPARTATE AMNIOTRANSFERASE,AST 27 U/L (15-37); BILIRUBIN TOTAL 0.4 mg/dL (0.2-1.0); BLOOD UREA NITROGEN,BUN 32 mg/dL (7-18); CARBON DIOXIDE,CO2 26 mmol/L (21-32); CHLORIDE,CL 108 mmol/L (98-107); CREATININE 1.28 mg/dL (0.55-1.02); GLUCOSE RANDOM 292 mg/dL (70-99); POTASSIUM,K 3.7 mmol/L (3.5-5.1); PROTEIN TOTAL,TP 6.1 g/dL (6.4-8.2); SODIUM,NA 146 mmol/L (136-145)
[2024-10-20 14:03] LABS: A/G RATIO 1.10; ESTIMATED GFR 43 mL/min (>=60); LYMPHOCYTES PERCENT MAN 2 % (20-50); MONOCYTES PERCENT MAN 3 % (2-8); SEG NEUTROPHILS PERCENT MAN 95 % (42-75)
[2024-10-20 14:08] LABS: B-TYPE NATRIURETIC PEPTIDE,BNP 174 pg/ml (0-100)
[2024-10-20 14:18] VITALS: BP 129/47
== END 2024-10-20 15:08 ==
LOC: DL.ED 13:19
DX: J44.9 Chronic obstructive pulmonary disease, unspecified (principal); E78.00 Pure hypercholesterolemia, unspecified; I10 Essential (primary) hypertension; K21.9 Gastro-esophageal reflux disease without esophagitis; Z88.8 Allergy status to other drugs, medicaments and biological substances; Z79.890 Hormone replacement therapy; Z79.899 Other long term (current) drug therapy; Z86.16 Personal history of COVID-19; Z90.49 Acquired absence of other specified parts of digestive tract
CPT/HCPCS: 36415; 71045; 80053; 83880; 84484; 85025; 93005; 94640; 99285; A9270; 93010; 99283

== ENCOUNTER 2024-12-06 11:01 | Observation (INO) | payer MEDICARE, OTHER ==
[2024-12-06] MEDS: Metoprolol Tartrate 5 MG/5 ML SDV IVPUSH ONE (11:23)
[2024-12-06 11:51] LABS: PLATELET COUNT,PLT 217 10^3/uL (150-450); RED BLOOD CELL COUNT 4.56 10^6/uL (4.2-5.4); WHITE BLOOD CELL COUNT,WBC 7.5 10^3/uL (5.0-10.0)
[2024-12-06 11:53] LABS: BASOPHILS PERCENT AUTO 0.1 % (0.0-1.0); EOSINOPHILS PERCENT AUTO 1.9 % (1.0-3.0); LYMPHOCYTES PERCENT AUTO 14.9 % (20.5-50.1); MONOCYTES PERCENT AUTO 8.0 % (2-8); NEUTROPHILS PERCENT AUTO 75.1 % (42.2-75.2)
[2024-12-06] MEDS: methylPREDNISolone Sodium Succinate 125 MG/2 ML SDV IVPUSH ONE (12:01)
[2024-12-06 12:02] LABS: INR 0.9 (0.9-1.2); PTT,PARTIAL THROMBOPLSTIN TIME 21.2 SEC (22.0-34.0)
[2024-12-06 12:05] LABS: LACTIC ACID 1.5 mmol/L (0.4-2.0)
[2024-12-06 12:12] LABS: ALANINE AMINOTRANSFERASE,ALT 27 U/L (14-59); ASPARTATE AMNIOTRANSFERASE,AST 17 U/L (15-37); B-TYPE NATRIURETIC PEPTIDE,BNP 202 pg/ml (0-100); BILIRUBIN TOTAL 0.5 mg/dL (0.2-1.0); BLOOD UREA NITROGEN,BUN 18 mg/dL (7-18); CARBON DIOXIDE,CO2 22 mmol/L (21-32); CHLORIDE,CL 112 mmol/L (98-107); CREATININE 0.69 mg/dL (0.55-1.02); GLUCOSE RANDOM 126 mg/dL (70-99); POTASSIUM,K 3.1 mmol/L (3.5-5.1); PROTEIN TOTAL,TP 6.1 g/dL (6.4-8.2); SODIUM,NA 146 mmol/L (136-145); TSH ULTRASENSITIVE 0.80 uIU/mL (0.36-3.74)
[2024-12-06 12:16] LABS: A/G RATIO 1.18; ESTIMATED GFR 88 mL/min (>=60)
[2024-12-06 12:44] LABS: BAND PERCENT MAN 1 %; EOSINOPHILS PERCENT MAN 2 % (1-3); LYMPHOCYTES PERCENT MAN 18 % (20-50); MONOCYTES PERCENT MAN 12 % (2-8); SEG NEUTROPHILS PERCENT MAN 67 % (42-75)
[2024-12-06] MEDS: Potassium Chloride 10 MEQ Tab.ER PO ONE (12:46)
[2024-12-06] MEDS: Furosemide 40 MG/4 ML VIAL IV ONE (12:46)
[2024-12-06] MEDS: NS with KCl 40mEq 1,000 ML IV SCH (12:58)
[2024-12-06] MEDS: Sodium Chloride 0.9% 10 ML Syringe FLUSH PRN (13:07)
[2024-12-06] MEDS ORDERED: 50% Dextrose in Water 50 ML Syringe IVPUSH PRN (15:06)
[2024-12-06] MEDS ORDERED: Ipratropium 0.02% 0.5 MG/2.5 ML Neb Soln NEB PRN (16:09)
[2024-12-06] MEDS ORDERED: Albuterol 0.083% 2.5 MG/3 ML Neb Soln INH PRN (16:14)
[2024-12-06] MEDS: DULERA INH SCH (18:14)
[2024-12-06] MEDS ORDERED: LEVALBUTEROL 0.63 MG/3 ML INH PRN (18:42)
[2024-12-06] MEDS ORDERED: [UNRECOGNIZED DRUG - OTHER] INH PRN (18:42)
[2024-12-06] MEDS: LEVALBUTEROL 0.63 MG/3 ML INH PRN (19:02)
[2024-12-07 06:16] LABS: BASOPHILS PERCENT AUTO 0.0 % (0.0-1.0); EOSINOPHILS PERCENT AUTO 0.0 % (1.0-3.0); LYMPHOCYTES PERCENT AUTO 9.8 % (20.5-50.1); MONOCYTES PERCENT AUTO 3.5 % (2-8); NEUTROPHILS PERCENT AUTO 86.7 % (42.2-75.2); PLATELET COUNT,PLT 207 10^3/uL (150-450); RED BLOOD CELL COUNT 4.18 10^6/uL (4.2-5.4); WHITE BLOOD CELL COUNT,WBC 4.8 10^3/uL (5.0-10.0)
[2024-12-07 06:49] LABS: BLOOD UREA NITROGEN,BUN 21.0 mg/dL (7-18); CARBON DIOXIDE,CO2 23.0 mmol/L (21-32); CHLORIDE,CL 113.0 mmol/L (98-107); CREATININE 0.69 mg/dL (0.55-1.02); EST CRCL DRUG DOSING (CG) 56.15 mL/min; GLUCOSE RANDOM 137.0 mg/dL (70-99); PHOSPHORUS 3.5 mg/dL (2.6-4.7); POTASSIUM,K 4.1 mmol/L (3.5-5.1); SODIUM,NA 146.0 mmol/L (136-145)
[2024-12-07 06:52] LABS: ESTIMATED GFR 88.0 mL/min (>=60)
[2024-12-07] MEDS: SPIRIVA RESPIMAT INH SCH (06:57)
[2024-12-07] MEDS: Diltiazem 180 MG Cap.CD PO SCH (08:04)
[2024-12-07] MEDS ORDERED: Non-Formulary Medication 1 Each (Roflumilast [Roflumilast] 500 MCG Tablet) PO SCH (09:00)
[2024-12-07 11:56] VITALS: BP 146/77; PULSE 84
[2024-12-07] MEDS: FLU (Fluad Triv) 25-26 (65UP)/MF59C/PF 45 MCG/0.5 ML Syringe IM ONE (12:45)
== END 2024-12-07 13:04 | disposition home or self-care (01) ==
LOC: DL.ED 11:01 → DL.MS 14:19 → DL.ED 14:19
PROVIDERS: ADMIT Internal Medicine; ATTEND Internal Medicine
DX: R06.02 Shortness of breath (principal); I48.91 Unspecified atrial fibrillation; J44.9 Chronic obstructive pulmonary disease, unspecified; E05.80 Other thyrotoxicosis without thyrotoxic crisis or storm; I10 Essential (primary) hypertension; E11.9 Type 2 diabetes mellitus without complications; E87.6 Hypokalemia; E87.1 Hypo-osmolality and hyponatremia; E87.8 Other disorders of electrolyte and fluid balance, not elsewhere classified; J30.9 Allergic rhinitis, unspecified; K21.9 Gastro-esophageal reflux disease without esophagitis; E78.00 Pure hypercholesterolemia, unspecified; M19.90 Unspecified osteoarthritis, unspecified site; F41.9 Anxiety disorder, unspecified; Z85.118 Personal history of other malignant neoplasm of bronchus and lung; Z79.890 Hormone replacement therapy; Z79.899 Other long term (current) drug therapy; Z20.822 Contact with and (suspected) exposure to COVID-19; Z88.8 Allergy status to other drugs, medicaments and biological substances; Z87.891 Personal history of nicotine dependence
CPT/HCPCS: 36415; 71045; 71046; 80048; 80053; 82947; 83605; 83735; 83880; 84100; 84439; 84443; 84484; 85025; 85610; 85730; 86140; 87040; 87428; 90653; 93005; 93010; 93306; 94640; 96365; 96375; 99285; A9270; G0008; J1938; J2919; J3360; J3480; J3490; 96366; 99223; 99239; G0378

== ENCOUNTER 2025-01-05 21:58 | Emergency (ER) | payer MEDICARE, OTHER ==
[2025-01-05 22:43] LABS: O2 DELIVERY DEVICE NASAL CANNULA
[2025-01-05 22:45] LABS: BASE EXCESS VENOUS -4.5 mmol/l ((-2)-(+3)); BICARBONATE,VENOUS 19 mmol/l (19-25); O2 SATURATION VENOUS 92.0 % (60-80); PCO2 VENOUS 30 mmHg (41-51); PH,VENOUS 7.41 (7.31-7.41); PO2 VENOUS 60 mmHg (35-42)
[2025-01-05 22:46] LABS: BASOPHILS PERCENT AUTO 0.2 % (0.0-1.0); EOSINOPHILS PERCENT AUTO 0.3 % (1.0-3.0); LYMPHOCYTES PERCENT AUTO 6.5 % (20.5-50.1); MONOCYTES PERCENT AUTO 5.3 % (2-8); NEUTROPHILS PERCENT AUTO 87.7 % (42.2-75.2); PLATELET COUNT,PLT 247 10^3/uL (150-450); RED BLOOD CELL COUNT 4.64 10^6/uL (4.2-5.4); WHITE BLOOD CELL COUNT,WBC 20.8 10^3/uL (5.0-10.0)
[2025-01-05] MEDS: methylPREDNISolone Sodium Succinate 125 MG/2 ML SDV IM ONE (22:50)
[2025-01-05] MEDS: Metoprolol Tartrate 5 MG/5 ML SDV IVPUSH ONE (22:57)
[2025-01-05 23:03] LABS: ALANINE AMINOTRANSFERASE,ALT 27.0 U/L (14-59); ASPARTATE AMNIOTRANSFERASE,AST 15.0 U/L (15-37); BILIRUBIN TOTAL 1.1 mg/dL (0.2-1.0); BLOOD UREA NITROGEN,BUN 14.0 mg/dL (7-18); CARBON DIOXIDE,CO2 21.0 mmol/L (21-32); CHLORIDE,CL 106.0 mmol/L (98-107); CREATININE 0.89 mg/dL (0.55-1.02); EST CRCL DRUG DOSING (CG) 43.53 mL/min; GLUCOSE RANDOM 156.0 mg/dL (70-99); POTASSIUM,K 3.8 mmol/L (3.5-5.1); PROTEIN TOTAL,TP 7.1 g/dL (6.4-8.2); SODIUM,NA 139.0 mmol/L (136-145)
[2025-01-05 23:04] LABS: A/G RATIO 0.87; ESTIMATED GFR 66.0 mL/min (>=60)
[2025-01-05 23:12] LABS: B-TYPE NATRIURETIC PEPTIDE,BNP 109.0 pg/ml (0-100)
[2025-01-05] MEDS: Magnesium Sulfat/D5W 1GM/100ML 1 GM in Premix Bag 1 BAG IV ONE (23:37)
[2025-01-05] MEDS: VANCOmycin 1.75 GM/350 ML 1.75 GM in Premix Bag 1 BAG IV ONE (23:54)
[2025-01-06 00:44] VITALS: BP 123/83
[2025-01-06 00:46] VITALS: PULSE 116
== END 2025-01-06 00:41 ==
LOC: DL.ED 21:58
DX: A41.9 Sepsis, unspecified organism (principal); E78.00 Pure hypercholesterolemia, unspecified; I10 Essential (primary) hypertension; J44.9 Chronic obstructive pulmonary disease, unspecified; K21.9 Gastro-esophageal reflux disease without esophagitis; Z86.16 Personal history of COVID-19; Z88.6 Allergy status to analgesic agent; Z88.8 Allergy status to other drugs, medicaments and biological substances; Z79.899 Other long term (current) drug therapy; Z79.01 Long term (current) use of anticoagulants; Z90.49 Acquired absence of other specified parts of digestive tract
CPT/HCPCS: 36415; 71045; 80053; 80162; 82803; 83605; 83735; 83880; 84145; 84484; 85025; 86140; 87040; 96365; 96367; 96368; 96372; 96375; 99285-25; A9270-GY; J0616; J1160; J2543; J2919; J3375; J3475